=== PATIENT | male | born 1950 | race African-American/Black ===

== ENCOUNTER 2016-08-28 22:16 | Emergency (ER) | payer MEDICARE, OTHER ==
--- NOTE | ~2016-08-28 | EKG ---
PATIENT: LOTTIE CARDENAS UNIT #: [id number] Ventricular Rate: 110 BPM Atrial Rate: 110 BPM P-R Interval: 144 ms QRS Duration: 96 ms Q-T Interval: 338 ms QTC Calculation(Bezet): 457 ms P [place]: 60 degrees Calculated R [place]: -35 degrees Calculated T [place]: 126 degrees Diagnosis Line: Sinus tachycardia Diagnosis Line: Possible Left atrial enlargement Diagnosis Line: Left axis deviation Diagnosis Line: ST and T wave abnormality, consider lateral ischemia Diagnosis Line: Abnormal ECG Diagnosis Line: When compared with ECG of 28-JUN-2016 13:13, Diagnosis Line: Criteria for Inferior infarct are no longer Diagnosis Line: Present Diagnosis Line: Confirmed by KRISTINA GRAY MD ([id number]) on Diagnosis Line: 08/29/2016 8:18:30 AM INTERPRETING MD: MARINA GRIFFITHS
[2016-08-28 20:52] LABS: BASOPHIL% 0.3 % (0-2.5); EOSINOPHIL# 0.3 X10e3 (0-0.7); EOSINOPHIL% 6.2 % (0.0-7.0); HEMATOCRIT 34.3 % (38.0-50.0); HEMOGLOBIN 10.6 gm/dL (13.0-16.0); LYMPHOCYTE# 0.7 X10e3 (1.0-3.5); MEAN CELL VOLUME 96.6 FL (83-96); MEAN CORPUSCULAR HEMOGLOBIN 29.8 PG (28-34); MEAN CORPUSCULAR HGB CONC 30.9 g/dL (30-36); MONOCYTE# 0.2 X10e3 (0-1.0); MONOCYTE% 3.5 % (3.0-12.0); NEUTROPHIL# 3.3 X10e3 (1.5-7.1); PLATELET COUNT 128 X10e3 (140-420); RED BLOOD COUNT 3.55 X10e (3.90-5.60); RED CELL DISTRIBUTION WIDTH 17.7 % (11.0-15.5); WHITE BLOOD COUNT 4.4 X10e3 (4.0-10.5)
[2016-08-28 20:54] LABS: DIFF IND NO
[2016-08-28 20:57] LABS: POC - CKMB 2.3 ng/mL (0.0-7.9); POC - TROPONIN <0.05 ng/mL (<=0.05)
[2016-08-28 21:08] LABS: ALBUMIN SERUM 3.3 g/dL (3.5-5.0); ALKALINE PHOSPHATASE 140 U/L (32-92); ALT (SGPT) 21 U/L (10-40); AST (SGOT) 17 U/L (10-42); BILIRUBIN, DIRECT 0.1 mg/dL (0.0-0.2); BILIRUBIN,INDIRECT 0.7 mg/dL (0.0-0.9); BILIRUBIN,TOTAL 0.8 mg/dL (0.2-2.0); BLOOD UREA NITROGEN 21 mg/dL (9-23); CARBON DIOXIDE 44 mmol/L (22-31); CHLORIDE 86 mmol/L (100-111); CREATININE SERUM 1.4 mg/dL (0.6-1.4); GLOM FILT RATE Estimated ABOVE60 mL/min (>60); GLUCOSE FASTING 218 mg/dL (70-110); POTASSIUM 4.2 mmol/L (3.5-5.1); PROTEIN TOTAL SERUM 7.7 g/dL (6.0-8.3); SODIUM 137 mmol/L (135-145)
[~2016-08-28 22:16] MED LIST: ALBUTEROL17 G2 IH; ALBUTEROL17 GM INH; ALBUTEROL20 ml INH; ALDACTONE; ATARAX PO; BUMEX1 MG PO; CLOPIDOGREL75 MG PO; COMBIVENT U/D3 ML INH; COREG12.5 MG PO; DESITIN60 GM TOP; DOXYCYCLINE HY100 M1 PO; DOXYCYCLINE HY100 M3; DOXYCYCLINE HY100 M3 PO; FLONASE 0.05% N16 G1; FUROSEMIDE40 MG PO; HYDROCODON-ACE1 EAC5 PO; INSULIN SUBQ; K-DUR20 ME1 PO; LANTUS100 U/ML SUBQ; LANTUS100 UNITS/ SUBQ; LASIX PO; LIPITOR20 MG PO; LIPITOR40 MG PO; LYRICA75 MG PO; MEDROL4 MG/DOSE- PO; METFORMIN; METFORMIN HCL500 M1 PO; METHOTREXATE2.5 MG; METHOTREXATE25 MG/M3 SUBQ; MUCINEX DM TABL1 BOX; NORCO 10-325 TA1 TAB PO; PREDNISONE PO; PROTONIX PO; REGLAN5 MG PO; TRIAMCINOLONE A15 G2 TOP; VENTOLIN5 MG/ML INH; VICODIN PO; ZITHROMAX PO; [UNRECOGNIZED DRUG - OTHER]
== END 2016-08-28 23:18 | disposition home or self-care (01) ==
LOC: CED 22:16
DX: N50.89 Other specified disorders of the male genital organs (principal); R60.0 Localized edema; B35.6 Tinea cruris; F17.210 Nicotine dependence, cigarettes, uncomplicated; J44.9 Chronic obstructive pulmonary disease, unspecified
CPT/HCPCS: 36415; 80048; 80076; 82553; 84484; 85025; 93005; 99283

== ENCOUNTER 2017-01-23 14:14 | Inpatient (IN) | payer MEDICARE, OTHER ==
[~2017-01-23] VITALS: Ht 167.6 cm; Wt 65.2 kg
--- NOTE | ~2017-01-23 | DS ---
Unit #: [id number] #: [id number] Patient: LOTTIE CARDENAS [id number] [address] [id number] I MR#: [id number] NAME: LOTTIE CARDENAS ROOM: 322 Age: 66 Sex: M Admission Date: 01/26/2017 : 1950 Discharge Date: 02/01/2017 Attending Physician: Mark Durham M.D. Primary Care Physician: Aldair Cantu M.D. DISCHARGE SUMMARY ADDENDUM Please note the following discharge medications. After review and discussion with pulmonary services and further review of home medications the discharge medications are as follows: 1. DuoNeb aerosol solution q.6 hours scheduled. 2. Symbicort 160/4.5 two puffs b.i.d. 3. Prednisone 20 mg p.o. daily x5 days. 4. Tylenol 650 mg p.o. q.6 p.r.n. 5. Mag ox 400 mg p.o. daily. 6. Flonase one to two squirts each nostril daily. 7. Bumex 1 mg p.o. daily. 8. Lantus 20 units subcu q.a.m. 9. Lantus 40 units subcu q.h.s. 10. Aspirin 81 mg daily. 11. Reglan 5 mg p.o. q.a.c. and q.h.s. 12. Zyprexa 5 mg p.o. q.h.s. 13. Folic acid 1 mg p.o. daily. DISCHARGE CONDITION Stable. DISCHARGE DISPOSITION Home as detailed above. Dictated by... Nohemi Goode/jan TD: 02/02/2017 11:35 JOB #: [id number] Unit #: [id number] #: [id number] Patient: LOTTIE CARDENAS DISCHARGE SUMMARY Page 1 of 1 X Mark Durham MD X DISCHARGE SUMMARY
--- NOTE | ~2017-01-23 | CR72 ---
[facility] A Service of [facility] & [facility] RADIOLOGY TEXT RESULTS PATIENT: LOTTIE CARDENAS LOCATION: CICCU3 CICCU3-22 : [birth year] UNIT #: [id number] AGE: [address]: Mark Durham MD SEX: M ORDER DR: [id number] [facility] [address] [place], [place] [address] [id number] I MR#: [id number] Acc #: [id number] NAME: LOTTIE CARDENAS : 1950 SEX: M STUDY DATE/TIME: 01/28/2017 13:01 UNIT: C3A PCU ROOM: Replaced by [facility] STUDY DESCRIPTION: CR Chest Single View Portable Attending Physician: Mark Durham M.D. Ordering Physician: Kp Castañeda M.D. Primary Care Physician: Aldair Cantu M.D. MEDICAL IMAGING REPORT This report is preliminary unless electronic signature is present EXAM Single view chest INDICATION Syncope. Shortness of air for 5 days. FINDINGS Single portable AP view of the chest compared to 01/23/2017. Right PICC terminates over the right subclavian vein. Heart is enlarged. There is improving aeration in both lung bases and decreased size of a right pleural effusion. No pneumothorax. IMPRESSION 1. Decreasing size of the right pleural effusion. 2. Right PICC terminates over the right subclavian vein. Dictated by... Hu Garcia M.D. THIS IS AN ELECTRONICALLY VERIFIED REPORT Hu Garcia M.D. at 01/30/2017 10:27 AM EMILIE/kristen TD: 01/29/2017 06:00 JOB #: [id number] MEDICAL IMAGING REPORT Page 1 of 1 COPY
--- NOTE | ~2017-01-23 | XA166 ---
[facility] A Service of [facility] & [facility] RADIOLOGY TEXT RESULTS PATIENT: LOTTIE CARDENAS LOCATION: C3A 339-01 : 46 UNIT #: [id number] AGE: [address]: Mark Durham MD SEX: M ORDER DR: [id number] [facility] [address] [place], [place] [address] [id number] I MR#: [id number] Acc #: [id number] NAME: LOTTIE CARDENAS : 1950 SEX: M STUDY DATE/TIME: 01/24/2017 14:21 UNIT: C3A PCU ROOM: 339 STUDY DESCRIPTION: XA PICC Line Placement WO Port Attending Physician: Mark Durham M.D. Ordering Physician: Mark Durham M.D. Primary Care Physician: Aldair Cantu M.D. MEDICAL IMAGING REPORT This report is preliminary unless electronic signature is present EXAM Right-sided PICC line placement INDICATION Need for IV access in a patient with cardiomegaly and a right pleural effusion diagnosed on radiograph performed January 23, 2017. 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 Informed consent was obtained and prior to initiating the procedure a formal time-out procedure was performed. Using all elements of maximal sterile barrier technique including hand hygiene, caps, sterile gowns, gloves and masks, the right arm was prepped 2% Chlorhexidine for cutaneous antisepsis and covered with a large sterile sheet. The ultrasound probe was covered with a sterile probe cover and sterile gel was applied. Real-time ultrasound guidance was used to localize a right upper extremity vein which was found to be patent and compressible. A hard copy ultrasound image was obtained. After localization anesthesia with 1% Xylocaine the vein was punctured using real-time ultrasound guidance and an 0.018 guidewire was advanced into the right subclavian vein but could not be advanced any further. At this point a peel-away sheath was advanced over the wire. Catheter was measured and trimmed and the catheter was positioned within a right subclavian vein. Following placement it flushed and aspirated easily. Total fluoroscopy time was 0.1 minutes. AK was 1 mGy. Position of the catheter was confirmed with radiographic image. IMPRESSION Successful placement of a right-sided midline PICC which terminates within the right subclavian vein. Ultrasound and fluoroscopy were used during the placement of the catheter and permanent images were saved. [facility] A Service of [facility] RADIOLOGY TEXT RESULTS PATIENT: LOTTIE CARDENAS LOCATION: C3A 339-01 : 46 UNIT #: [id number] AGE: [address]: Mark Durham MD SEX: M ORDER DR: Dictated by... Nivia Escobar M.D. THIS IS AN ELECTRONICALLY VERIFIED REPORT Nivia Escobar M.D. at 01/25/2017 5:17 PM BALTAZAR/latonia TD: 01/25/2017 15:48 JOB #: [id number] MEDICAL IMAGING REPORT Page 1 of 1 COPY
--- NOTE | ~2017-01-23 | DS ---
Unit #: [id number] #: [id number] Patient: LOTTIE CARDENAS [id number] [facility]. [place], [place] [address] [id number] I MR#: [id number] NAME: LOTTIE CARDENAS ROOM: 322 Age: 66 Sex: M Admission Date: 01/26/2017 : 1950 Discharge Date: 02/01/2017 Attending Physician: Mark Durham M.D. Primary Care Physician: Aldair Cantu M.D. DISCHARGE SUMMARY REASON FOR ADMISSION Syncopal episode at home. HISTORY OF PRESENT ILLNESS/HOSPITAL COURSE The patient is a 66-year-old -[place] male with a prior history of end stage COPD on home O2 with very poor compliance, prior history of nonischemic cardiomyopathy and history of AICD and chronic systolic heart failure who was brought to the emergency room secondary to a syncopal episode. He, himself, is a fairly poor historian. He stated that apparently he was at home, passed out for approximately 30 seconds. He did not have any postictal state. He was subsequently admitted for the same. In regards to his prior history of systolic heart failure as well as nonischemic cardiomyopathy, consultation was placed to cardiology services. Dr. Campos and associates saw and evaluated patient. He was placed initially on dobutamine as well as dopamine support for acute on chronic systolic heart failure. These medications were gradually weaned. He was maintained on appropriate IV diuresis. From a cardiac standpoint, he was eventually weaned off of medications and, from their standpoint, patient was felt to be stable for discharge. 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 It was recommended that he follow up with them at time of discharge. He did undergo a 2D echocardiogram this hospital admission on January 25, 2017, showing ejection fraction of approximately 15%, possibly even as low as 10%, after discussion and review with Dr. Campos as well as grade 2 diastolic dysfunction, severe tricuspid regurgitation as well as mild mitral regurgitation. Secondary to patient's poor respiratory status and end stage COPD, consultation was placed to pulmonary services who saw and evaluated Dr. Medrano and recommended patient be more compliant with his O2. He was maintained on routine COPD medications and eventually transitioned to p.o. medications at time of discharge. Overall, his prognosis is poor. I have reviewed his overall level of care with this patient, the patient's fiance as well as the patient's niece. They are well aware of the patient's longstanding history of noncompliance, both with fluid restriction as well as with wearing his home O2. I also questioned if he still was taking his medications at home Unit #: [id number] #: [id number] Patient: LOTTIE CARDENAS as well. His chance of readmission is significantly elevated. He states in the future that he will go to [facility]. I did state to him that any particular hospital overall. His [facility] prognosis primarily depends on his ability to comply with medications and/or management and likely his life expectancy may be less than six months if he continues on this current regimen of noncompliance. It should also be noted physical and occupational therapy services saw and evaluated patient. They did recommend patient consider rehab at time of discharge. However, he adamantly refused and he stated that he wished to go home. This, too, was according to his guajardo. FINAL DISCHARGE DIAGNOSES 1. Acute on chronic systolic heart failure, estimated ejection fraction between 10 to 15%. 2. Grade 2 diastolic dysfunction. 3. Prior history of automatic implantable cardioverter defibrillator placement. 4. Syncopal episode at home. 5. Paroxysmal atrial fibrillation history. 6. Prior history of nonsustained ventricular tachycardia. 7. Prior history of coronary artery disease with stent placement to LAD. 8. Peripheral vascular disease. 9. Hypertension. 10. Hyperlipidemia. 11. Type 2 diabetes. 12. Prior history of transient ischemic attacks. 13. End stage chronic obstructive pulmonary disease, on home O2. 14. DO NOT RESUSCITATE status. 15. Longstanding history of noncompliance. 16. Anemia, likely of chronic disease, baseline between 9 to 10. FINAL DISCHARGE MEDICATIONS 1. Prednisone 20 mg p.o. daily x5 days. 2. Eliquis 5 mg p.o. b.i.d. 3. Folic acid 1 mg p.o. daily. 4. DuoNeb aerosol solution q.6 hours scheduled. 5. Flonase one to two squirts each nostril q. a.m. 6. Zyprexa 5 mg p.o. q. h.s. 7. Reglan 5 mg p.o. q. a.c. 8. Aspirin 81 mg p.o. daily. 9. Mag ox 400 mg p.o. daily. 10. Neurontin 100 mg p.o. q. h.s. 11. Bumex 1 mg p.o. daily. 12. Levemir 15 units subcu q. a.m. 13. Metformin 500 mg p.o. t.i.d. DISCHARGE CONDITION Stable. DISCHARGE DISPOSITION Home. Home health to follow at time of discharge. HALFWAY PROGNOSIS Poor secondary to noncompliance. Unit #: [id number] #: [id number] Patient: LOTTIE CARDENAS Dictated by... Nohemi Goode/michael TD: 02/02/2017 11:26 JOB #: [id number] DISCHARGE SUMMARY Page 1 of 1 X Mark Durham MD X DISCHARGE SUMMARY
--- NOTE | ~2017-01-23 | A ---
[facility] Nutrition Therapy DATE: 01/24/17 Patient: LOTTIE CARDENAS Physician: SHAYY Address: [address] [place] [address] Room/Bed: [address] [place] [address], Zip: [place] [address] Admit Date: 01/23/17 Date of : 46 Height: 5 6 Weight: 158 72 NUTRITIONAL ASSESSMENT: REASON: 2 NUTRITION RISK PT RE: PRESSURE ULCER/NON-HEALING WOUND + POOR PO INTAKE PT IS 66 Y.O. MALE ADMITTED FOR SYNCOPE, CHF PMH: COPD, HTN, HLD, DM, AFIB, CHF, STROKE, PAD, NONISCHEMIC CARDIOMYOPATHY Anthropometrics: 5'6", WT: 158# (71.8 KG), BMI: 25.5 Labs: BUN: 32, CREAT: 1.5, ALB: 2.6, A1c: 7.5 (06/30/16), GFR: 54.7 Meds: REGLAN, NACL, NOVOLOG, LEVEMIR, FOLIC ACID, LEVAQUIN IV I/O & Bowel function: 6335/100 Skin Integrity: BLE SWELLING Assessment: CHART REVIEWED AND EVENTS NOTED. PT SEEN FOR 2 NUTRITION RISK SCREENING PTS RE: PRESSURE ULCER + POOR PO INTAKE. PT SLEEPY & LETHARGIC AT TIME OF VISIT REPORTING "GOOD" PO INTAKE AND APPETITE. PT HAD BREAKFAST TRAY AT BEDSIDE-NOTED PT ATE ~50%. PER [employer], PT'S WEIGHTS HAVE BEEN STABLE (170# IN 2013). THIS RD ENCOURAGED ADEQUATE KCAL AND PROTEIN INTAKE, PT AGREED TO ENSURE PUDDING W/DINNER MEAL. PT NOT APPROPRIATE FOR DIET EDUCATION NEEDS 2' PT'S CURRENT SLEEPY/LETHARGIC CONDITION. RD TO FOLLOW. SEE RECOMMENDATIONS BELOW. Dx: ALTERED NUTRIENT UTILIZATION R/T PMH, CURRENT DIAGNOSIS AEB NEED FOR THERAPEUTIC DIET ORDER. Intervention: 1. HEALTHY HEART DIET 2. ENSURE PUDDING W/DINNER MEAL Monitoring, Evaluation and Goals: 1. ORAL INTAKE; CONSUME/TOLERATE >50% OF MEALS AND SUPPLEMENT 2. WEIGHTS; PROMOTE WEIGHT MAINTENANCE 3. LABS; WNL MONITOR: -PO INTAKE/APPETITE -SUPPLEMENT INTAKE -LABS Recommendations: [facility] Nutrition Therapy DATE: 01/24/17 Patient: LOTTIE CARDENAS Physician: SHAYY Address: [address] [place] [address] Room/Bed: [address] [place] [address], Zip: [place] [address] Admit Date: 01/23/17 Date of : [birth year] Height: 5 6 Weight: 158 72 1. PLEASE ORDER [place] ENSURE PUDDING W/DINNER MEAL DAILY 2. CONSIDER ADDING CC TO CURRENT DIET ORDER, IF PO INTAKE ADEQUATE 3. CONSIDER ADDING MVI W/MINERAL DAILY TO PT'S CURRENT MEDICATION REGIMEN RD WILL F/U PER PROTOCOL PT IS MILDLY COMPROMISED Respectfully, TITO CESAR MS, RD, LD [facility] Nutrition[facility] cc: client file
--- NOTE | ~2017-01-23 | CR72 ---
[facility] A Service of [facility] & [facility] RADIOLOGY TEXT RESULTS PATIENT: LOTTIE CARDENAS LOCATION: [facility] 339-01 : 48 UNIT #: [id number] AGE: [address]: Mark Durham MD SEX: M ORDER DR: [id number] [facility] [address] [place], [place] [address] [id number] I MR#: [id number] Acc #: [id number] NAME: LOTTIE CARDENAS : 1950 SEX: M STUDY DATE/TIME: 01/23/2017 14:36 UNIT: A U ROOM: [facility] STUDY DESCRIPTION: CR Chest Single View Portable Attending Physician: Bev Gilbert M.D. Ordering Physician: Johnie Steve M.D. Primary Care Physician: Aldair Cantu M.D. MEDICAL IMAGING REPORT This report is preliminary unless electronic signature is present EXAM Portable chest, 01/23/2017 INDICATION Syncopal episode and shortness of air today. FINDINGS AP portable chest is compared with 06/30/2016. Heart remains enlarged. There is new infiltrate or atelectasis at the right base with a small right effusion. Left lung clear. No pneumothorax. IMPRESSION Stable cardiomegaly with new small right pleural effusion and right base atelectasis or infiltrate. Dictated by... Johnie Griffith Jr., M.D. THIS IS AN ELECTRONICALLY VERIFIED REPORT Johnie Griffith Jr., M.D. at 01/24/2017 8:49 AM MEREDITH/luisa TD: 01/23/2017 21:20 JOB #: [id number] MEDICAL IMAGING REPORT Page 1 of 1 COPY
--- NOTE | ~2017-01-23 | EKG ---
PATIENT: LOTTIE CARDENAS UNIT #: [id number] Ventricular Rate: 125 BPM Atrial Rate: 125 BPM P-R Interval: 124 ms QRS Duration: 100 ms Q-T Interval: 324 ms QTC Calculation(Bezet): 467 ms P [place]: 64 degrees Calculated R [place]: -59 degrees Calculated T [place]: 102 degrees Diagnosis Line: Sinus tachycardia Diagnosis Line: Left anterior fascicular block Diagnosis Line: Inferior infarct (cited on or before 17-DEC-2013) Diagnosis Line: T wave abnormality, consider lateral ischemia Diagnosis Line: Abnormal ECG Diagnosis Line: When compared with ECG of 23-JAN-2017 14:22, Diagnosis Line: Premature atrial complexes are no longer Present Diagnosis Line: Vent. rate has increased BY 43 BPM Diagnosis Line: Diagnosis Line: Confirmed by ARLEEN SANCHES MD ([id number]) on Diagnosis Line: 01/29/2017 9:50:34 PM INTERPRETING MD: ENE
--- NOTE | ~2017-01-23 | EKG ---
PATIENT: LOTTIE CARDENAS UNIT #: [id number] Ventricular Rate: 82 BPM Atrial Rate: 82 BPM P-R Interval: 170 ms QRS Duration: 102 ms Q-T Interval: 422 ms QTC Calculation(Bezet): 493 ms P [place]: 54 degrees Calculated R [place]: -54 degrees Calculated T [place]: 146 degrees Diagnosis Line: Sinus rhythm with Premature atrial complexes Diagnosis Line: Left axis deviation Diagnosis Line: Inferior infarct , age undetermined Diagnosis Line: T wave abnormality, consider lateral ischemia Diagnosis Line: Abnormal ECG Diagnosis Line: When compared with ECG of 28-AUG-2016 19:07, Diagnosis Line: Premature atrial complexes are now Present Diagnosis Line: Inferior infarct is now Present Diagnosis Line: Inverted T waves have replaced nonspecific T wave Diagnosis Line: abnormality in Anterior leads Diagnosis Line: Confirmed by DARRIUS WEBER MD ([id number]) on 01/24/2017 Diagnosis Line: 12:08:33 AM INTERPRETING MD: TIA GRIFFITHS
--- NOTE | ~2017-01-23 | CO ---
Unit #: [id number] #: [id number] Patient: LOTTIE CARDENAS [id number] [facility]. [place], [place] [address] [id number] MR#: [id number] NAME: LOTTIE CARDENAS ROOM: CICCU3 Age: 66 Sex: M Admission Date: 01/26/2017 : 1950 Attending Physician: Mark Durham M.D. Primary Care Physician: Aldair Cantu M.D. Consultation Date: 01/29/2017 CONSULTATION REPORT REASON FOR CONSULTATION ICU. HISTORY OF PRESENT ILLNESS The patient is a 66-year-old gentleman who looks much older than stated age, has multiple medical problems including severe cardiomyopathy with an EF of approximately 15%. He also has COPD on home oxygen but only wears his oxygen as needed. When I asked him why he came into the hospital, he says "I don't know." Apparently according to the EHR, the family called EMS because he was weak. He was found to be hypotensive, had lower extremity edema. Initial chest x-ray showed a right pleural effusion. He apparently now is being transferred to the ICU because of low blood pressure and is being placed on dobutamine. The patient denies shortness of breath, chest pain, sputum production, hemoptysis, palpitations, but again he appears to be very bothered by the fact that I was asking him any questions at all. PAST MEDICAL HISTORY Nonischemic cardiomyopathy, COPD, chronic respiratory failure with p.r.n. use oxygen at home, hypertension, diabetes, hyperlipidemia, paroxysmal atrial fibrillation, peripheral artery disease. MEDICATIONS AT HOME He has oxygen that he wears as needed. He has a nebulizer. He cannot tell me any other inhaled medications. According to the HER he was on Coreg, Eliquis, Lasix, Glucophage, folic acid, gabapentin, DuoNeb, Flonase, Lortab and Lantus insulin. ALLERGIES Oxycodone and Tylenol, unknown reaction. SOCIAL HISTORY He is single. He really does not want to tell me where he lives or who he lives with at home. He occasionally drinks alcohol and is a referred tobacco smoker, told me he quit three years ago. FAMILY HISTORY No familial lung disease. REVIEW OF SYSTEMS He basically does not participate with a review of systems. He states "you should know." PHYSICAL EXAMINATION Unit #: [id number] #: [id number] Patient: LOTTIE CARDENAS GENERAL: Reveals a gentleman who is in no acute distress on nasal cannula oxygen, appears somewhat dyspneic. VITAL SIGNS: He is afebrile. Pulse 126, respiratory rate is 27, blood pressure 89/56, 5'6", 143 pounds. HEENT: Pupils equal, round and reactive to light. Sclerae anicteric. Head atraumatic. NECK: Supple. No supraclavicular or cervical adenopathy appreciated. Mucous membranes borderline dry. Jugular venous pressures appear increased. CHEST: Decreased breath sounds. No active wheeze, stridor or consolidation. CARDIAC: Reveals distant heart tones. Regular rate and rhythm. No definite pathologic murmur, rub or gallop. ABDOMEN: Soft, nontender. No hepatomegaly or rebound. EXTREMITIES: Reveals brawny induration changes. No acute rash. No diaphoresis. No clubbing or cyanosis. There is some edema. NEUROLOGIC: He did not participate with a full neurologic exam. DIAGNOSTIC STUDIES IMAGING STUDIES: Chest x-ray is fairly unremarkable. No acute infiltrates. LABORATORY STUDIES: Arterial blood gas - pH 7.49, pCO2 62, pO2 of 68 on 2 1/2 L. His BUN is 44, creatinine 1.7 which is a little higher than his admission labs. BNP 1,375. White blood cell count 11, hemoglobin 10.3, platelet count 319. Urinalysis - pyuria and hematuria. Blood cultures on admission - no growth so far. Urine no growth. IMPRESSION 1. Respiratory failure, hypercapnic, hypoxemic. 2. Severe left ventricular dysfunction with evidence of low cardiac outpatient state. 3. Chronic obstructive pulmonary disease without active bronchospasm. 4. Chronic respiratory failure at home with only p.r.n. use. 5. Do not Resuscitate status. 6. Multiple medical problems listed above. PLAN Maximize pulmonary status. He currently is on Dulera and nebulized bronchodilators. Apparently Levaquin has been implemented possibly for urinary tract infection. I will check a cortisol level and if low will consider IV steroids, on the other hand I do not think he needs otherwise. Otherwise I don't think he needs IV steroids for bronchospasm. Will repeat urine for UA and C and S. Thank you very much for allowing me to participate in the care of Mr. Cardenas. Dictated by... Nohemi Sarabia/jan TD: 01/30/2017 09:11 JOB #: [id number] Unit #: [id number] #: [id number] Patient: LOTTIE CARDENAS CONSULTATION REPORT Page 1 of 1 X José Medrano MD CONSULTATION REPORT
--- NOTE | ~2017-01-23 | FU ---
[facility] Nutrition Therapy DATE: 01/31/17 Patient: LOTTIE CARDENAS Physician: SHAYY Address: [address] [place] [address] Room/Bed: [address], Zip: [place] [address] Admit Date: 01/26/17 Date of : 48 Height: 5 6 Weight: 152 69 NUTRITION MONITORING/FOLLOW-UP: Reason: Nutrition follow-up Admitting dx: 66 y/o male admitted with CHF and syncopal episode Anthropometrics: Ht: 66", admission wt: 158 lbs, current wt: 152 lbs, BMI: 25.5 (overweight; based on admission weight) Labs: Na 132, glucose 384, POC 259-376 (01/30), BUN 59, creat 1.5, GFR 54.7 Meds: IV levaquin, bumex, reglan, mag-ox, dopamine, dobutamine, high SSI (changed from medium SSI 01/30), levemir, solu-medrol (changed from q 6 hrs to q 12 hrs 01/30) GI: BM 01/29 Skin: Toe ulcers noted, no edema Assessment: Chart reviewed, events noted. Patient transferred to ICU from on 01/29 due to hypotension. He remains on 2 pressors which are trying to be weaned down. He has been refusing the bipap so he is on 2L nasal cannula. CXR showed ascites and pleural effusion. He has been tolerating a consistent carb/no added salt diet with 1800 ml fluid restriction. Nursing noted he likes to drink fluids, so controlling his CHF at home may be an issue. KETTLE SKIMMER informed me he has refuses a mechanical soft restriction on his diet and that he eats very well. Nursing states he is complaining of his dietary restrictions and wants more food. His blood glucose has not been well controlled and his insulin regimen was adjust yesterday as well as his solu-medrol schedule. See nutrition goals, nutrition dx and recs as stated below. Will continue to follow. Dx: Impaired nutrient utilization r/t PMH, current diagnosis AEB need for therapeutic diet order and fluid restriction, blood glucose 259-376 mg/dL. - ACTIVE Intervention: See recs below Monitoring, Evaluation and Goals: Previous goals: 1. PO intake > 50% of meals - MET 2. Maintain weight status - MET (weight fluctuates with fluid status) 3. Labs will improve - IN PROGRESS Updated goals: [facility] Nutrition Therapy DATE: 01/31/17 Patient: LOTTIE CARDENAS Physician: SHAYY Address: [address] [place] [address] Room/Bed: CICCU3-[address] [facility], Zip: [place] [address] Admit Date: 01/26/17 Date of : 48 Height: 5 6 Weight: 152 69 1. PO intake WNL 50-100% of meals. 2. Improvement in labs (glucose < 200, Na WNL). Monitor: per protocol, criteria to determine if above goals met Recommendations: 1. Suggest continuing with consistent carb (60g carbs/meal) / no added salt (no more than 4,000 mg/day) + fluid restriction per MD noting hyponatremia. 2. Daily weights. 3. Continue to optimize insulin regimen noting hyperglycemia. Discontinue solu-medrol once able. 4. Patient would benefit from low sodium/consistent carb diet education once appropriate. Please consult prior to discharge if diet education is desired and patient is agreeable. Status: Mild nutrition risk Respectfully, Geovanna Austin, KASSIE, LD [employer] [facility] [employer] Services [facility] cc: client file
--- NOTE | ~2017-01-23 | CT57 ---
[facility] A Service of [facility] RADIOLOGY TEXT RESULTS PATIENT: LOTTIE CARDENAS LOCATION: C3A 339- : 48 UNIT #: [id number] AGE: [address]: Mark Durham MD SEX: M ORDER DR: [id number] [facility] [address] [facility]. [place], [place] [address] [id number] I MR#: [id number] Acc #: [id number] NAME: LOTTIE CARDENAS : 1950 SEX: M STUDY DATE/TIME: 01/24/2017 15:22 UNIT: C3A PCU ROOM: [facility] STUDY DESCRIPTION: CT Chest Wo Cont Attending Physician: Mark Durham M.D. Ordering Physician: Mark Durham M.D. Primary Care Physician: Aldair Cantu M.D. MEDICAL IMAGING REPORT This report is preliminary unless electronic signature is present EXAM CT scan of the chest without contrast INDICATIONS Shortness of air since yesterday. Syncopal episode yesterday. Right pleural effusion on chest x-ray. COMPARISON 10/13/2009 TECHNIQUE Axial 5-mm images were obtained through the chest without IV contrast. This CT exam was performed with one or more of the following radiation dose reduction techniques: Automatic exposure control, adjustment of mA and/or kV according to patient size, and iterative reconstruction. FINDINGS There are densely calcified right paratracheal lymph nodes. There is a pacemaker present. The aorta is normal in size. There are small uxqyb-kcfdyaz-ajom-left effusions and minimal right base atelectasis. Lungs are otherwise clear. Visualized portions of the upper abdomen show a small amount of ascites. Gallbladder is slightly contracted and may contain some stones. IMPRESSION 1. There is a small right effusion and a tiny left effusion. 2. Small amount of upper abdominal ascites. 3. Possible gallstones or sludge. 4. No infiltrates are identified. [facility] A Service [facility] RADIOLOGY TEXT RESULTS PATIENT: LOTTIE CARDENAS LOCATION: C3A 339- : 48 UNIT #: [id number] AGE: [address]: Mark Durham MD SEX: M ORDER DR: Dictated by... Sp Farrell M.D. THIS IS AN ELECTRONICALLY VERIFIED REPORT Sp Farrell M.D. at 01/26/2017 6:09 AM FEL/psc TD: 01/25/2017 03:29 JOB #: [id number] MEDICAL IMAGING REPORT Page 1 of 1 COPY
--- NOTE | ~2017-01-23 | CO ---
Unit #: [id number] #: [id number] Patient: LOTTIE CARDENAS [id number] [facility]. [place], [place] [address] [id number] MR#: [id number] NAME: LOTTIE CARDENAS ROOM: 339 Age: 66 Sex: M Admission Date: 01/23/2017 : 1950 Attending Physician: Mark Durham M.D. Primary Care Physician: Aldair Cantu M.D. CONSULTATION REPORT REASON FOR CONSULTATION Syncope and congestive heart failure. HISTORY OF PRESENT ILLNESS This is a pleasant 66-year-old male with a past medical history of systolic congestive heart failure, status post AICD [employer] placement; COPD, on home O2; nonischemic cardiomyopathy; paroxysmal atrial fibrillation, on anticoagulation with Eliquis; PAD; diabetes mellitus; hypertension; hyperlipidemia; coronary artery disease with a history of stents in the past. He typically follows with Dr. Jaffe at [facility], she is his primary substitute teacher. The patient at present is drowsy, but does awaken and answer some questions, but drifts quickly back to sleep, but he is a poor historian. However, there is no family present at bedside. According to the chart as well as a review with the nursing staff, the patient came in secondary to a syncopal episode. He tells me he was at home in his typical state of health, watching television when he began dropping things and then states he loss consciousness for a few seconds, then awoke and called EMS. On arrival to the emergency room, the blood pressure was noted to be low at in the 80s/60s. He denied any complaints of chest pain, palpitations, or discharge of his defibrillator. Preceding this episode, he denied any seizure activity and denied any urinary incontinence. In the emergency room, chest x-ray showed a new right pleural effusion as well as an elevated BNP of 1722. In the ER, he did receive 1 L of fluid bolus and started on empiric antibiotic therapy. The patient does report increasing difficulty with his breathing as well as scrotal swelling and abdominal distention. However, he denies any PND at this time. His initial EKG in the ER showed sinus rhythm with PACs, left axis deviation, inferior infarct, age undetermined, and some nonspecific T-wave abnormality in the lateral leads, rate was 82 beats per minute, no acute ischemic changes were noted. Point of care troponin was negative. We were asked to see the patient for evaluation of the above. PAST MEDICAL HISTORY 1. Chronic systolic congestive heart failure, ejection fraction 15% to 20%. 2. Status post AICD placement, [employer] device. 3. Nonischemic cardiomyopathy. 4. Hypertension. 5. Diabetes mellitus. 6. Hyperlipidemia. 7. COPD, on home oxygen therapy. 8. Paroxysmal atrial fibrillation, on chronic anticoagulation with Unit #: [id number] #: [id number] Patient: LOTTIE CARDENAS. 9. Peripheral arterial disease. 10. Coronary artery disease with a history of stents in the past. 11. History of recurrent TIAs. PAST SURGICAL HISTORY 1. [employer] defibrillator placement. 2. Cardiac catheterization. HOME MEDICATIONS 1. Gabapentin 300 mg p.o. b.i.d. 2. Ipratropium-Albuterol Mini-Neb q.6 hours as needed. 3. Flonase 0.5 nasal spray every morning. 4. Lortab 10/325 one tablet p.o. q.6 hours p.r.n. 5. Carvedilol 6.25 mg b.i.d. 6. Eliquis 5 mg p.o. b.i.d. 7. Lasix 80 mg p.o. b.i.d. 8. Glucophage 1000 mg p.o. b.i.d. 9. Folic acid 1 mg p.o. daily. 10. Lantus 20 units subcu every morning. 11. Aspirin 81 mg p.o. daily. 12. Athlete foot spray one spray topical daily. 13. Clotrimazole 12 g topical twice daily. 14. [place] spray as needed. 15. Desitin diaper rash ointment topical daily to affected area. 16. Desonide cream twice daily to affected area. 17. Flovent 2 spray inhalation every morning. 18. Hydrocortisone cream topical twice daily. 19. Hydroxyzine 1 to 3 tablets at bedtime. 20. Lantus 40 units subcu every evening. 21. Reglan 5 mg p.o. t.i.d. before meals. 22. NovoLog insulin 0 to 7 units subcu four times daily. 23. Olanzapine 7.5 mg p.o. every evening. 24. Symbicort 160/4.5 two puffs inhalation daily. 25. Furosemide 5 mg p.o. daily. ALLERGIES Oxycodone and acetaminophen. SOCIAL HISTORY This is a single male. He states he lives at home alone. He has a prior history of smoking in the remote past. Occasional alcohol use. Denies any illicit drugs. FAMILY HISTORY Positive for coronary artery disease in his father. REVIEW OF SYSTEMS Difficult to obtain secondary to the patient is drowsy at this time. It is positive for what is stated above in the HPI. PHYSICAL EXAMINATION GENERAL APPEARANCE: This is a 66-year-old male, resting in bed, and in no acute distress. VITAL SIGNS: Temperature 97.5, respiratory rate 18 to 22, pulse 87, blood pressure 97/72 to 110/74. HEENT: Head is atraumatic and normocephalic. Pupils are equal and round. Mucous membranes are dry. Unit #: [id number] #: [id number] Patient: RONALD,BRIGHT NECK: Trachea is midline. Positive JVD. Carotid upstrokes are normal. No thyromegaly or lymphadenopathy. LUNGS: Clear anterior, diminished in the right. Fine crackles noted in the left lower base. HEART: S1 and S2. No murmur, gallop, or rub. ABDOMEN: Tense and distended. Positive hepatosplenomegaly. Unable to palpate for any masses at this time. EXTREMITIES: Legs are tight bilaterally, especially in the thigh area. Lower legs are covered with Jin bandages. GENITOURINARY: Significant scrotal swelling. SKIN: He has an AICD in place in left chest wall. NEUROLOGIC: He is sleepy, but is arousable and answers questions, but is a poor historian. However, he does move all extremities equally and he is following commands with ease. DIAGNOSTIC STUDIES IMAGING STUDIES: Chest x-ray shows stable cardiomegaly with new small right pleural effusion and right base atelectasis or infiltrate. LABORATORY DATA: Glucose 82, BUN 32, creatinine 1.5, sodium 139, potassium 3.9, chloride 95, CO2 of 36, albumin 2.6. BNP was 1722. Lactic acid was 1. Point of care troponin has been negative x1. Hemoglobin 9.6, hematocrit 32.1, WBC 6.5, and platelet count 221. Blood cultures are pending. CARDIOVASCULAR STUDIES: EKG shows sinus rhythm with PACs, rate of 82 beats per minute, left axis deviation, cannot rule out previous inferior infarct, T-wave abnormalities noted in the lateral leads, nonspecific, QTc interval of 493 milliseconds. IMPRESSION 1. Acute on chronic systolic congestive heart failure, last known ejection fraction was 15% to 20%. 2. Status post [employer] automatic implantable cardioverter-defibrillator. 3. Syncopal episode. 4. Paroxysmal atrial fibrillation, on chronic anticoagulation with Eliquis. 5. Nonischemic cardiomyopathy. 6. History of coronary artery disease with a history of stents in the past. 7. Peripheral arterial disease. 8. Hypertension. 9. Hyperlipidemia. 10. Diabetes mellitus. 11. Nonsustained ventricular tachycardia. PLAN The patient has been admitted, we were asked to see for syncopal episode and congestive heart failure. He is a very poor historian and there is no family present at bedside. The patient does follow with a substitute teacher at [facility], Dr. Jaffe. We will request those records as far as any stress test, recent echo, discharge summary, and a cardiac cath if he has had in the past. We will continue to trend cardiac enzymes and troponin with parameters to call if his troponins greater than 0.5. We will get [employer] to come in and interrogate the patient's defibrillator to see if there are any episodes of nonsustained ventricular tachycardia. The patient however denies any discharges of his Unit #: [id number] #: [id number] Patient: LOTTIE CARDENAS defibrillator. At this time, we will discontinue his carvedilol, and start the patient on Dobutrex at 5 mcg/kg per kg per minute. He will also be started on Bumex drip at 2 mg/hour for 4 hours, then 1.5 mg/hour for six, and then 1 mg/hour, and his oral diuretics will be discontinued. We will have to monitor his creatinine closely. He will have CBC, magnesium, BMP, and BNP in the morning. We will also check repeat 2D echocardiogram today. The patient will also be placed on strict I's and O's as well as fluid restriction and sodium restriction. Further recommendations will be pending Dr. Campos's assessment. Dictated by... Grace Wolfe A.P.R.N. for Nohemi Hitchcock/ahn TD: 01/25/2017 12:16 JOB #: [id number] CONSULTATION REPORT Page 1 of 1 X Grace Wolfe APRN X CONSULTATION REPORT
--- NOTE | ~2017-01-23 | HP ---
Unit #: [id number] #: [id number] Patient: LOTTIE CARDENAS [id number] [address] [id number] MR#: [id number] NAME: LOTTIE CARDENAS ROOM: Age: 66 Sex: M Admission Date: 01/23/2017 : 1950 Attending Physician: Johnie Steve M.D. Primary Care Physician: Aldair Cantu M.D. HISTORY AND PHYSICAL CHIEF COMPLAINT Syncope. HISTORY OF PRESENT ILLNESS The patient is a 66-year-old -Greek male with a history of a COPD on home oxygen and the nonischemic cardiomyopathy, status post AICD and the chronic systolic heart failure, brought to the emergency room with a syncopal episode. The patient is a poor historian and the history is obtained by speaking to the ER physician. The patient called the EMS because the patient had been weak. Once the EMS arrived, the patient had a syncopal episode and with a blood pressure down to 85/60 with the heart rate of 83 and that lasted for 30 seconds and patient had no postictal period. The patient also complains of the swelling of the legs associated with the scrotal swelling. The patient denies any chest pain. Positive for shortness of breath and denies any palpitations or firing of the AICD. The patient had a chest x-ray that showed the right pleural effusion and concerning for the atelectasis with the pneumonia on the right. Patient is being admitted for the above reasons. PAST MEDICAL HISTORY History of nonischemic cardiomyopathy, hypertension, diabetes, hyperlipidemia, COPD on home oxygen, paroxysmal atrial fibrillation, peripheral arterial disease, weakness, slurred speech. PAST SURGICAL HISTORY History of a cardiac defibrillator present. HOME MEDICATIONS Patient is on Coreg, Eliquis, Lasix, Glucophage, folic acid, gabapentin, DuoNeb, Flonase, Lortab and Lantus. ALLERGIES Oxycodone and acetaminophen. SOCIAL HISTORY He is single; history of remote smoking, occasional alcohol use, denies any illicit drug abuse. FAMILY HISTORY Positive for cardiac disease in mother and father. REVIEW OF SYMPTOMS Positive for the shortness of breath. Positive for the syncopal episode. Unit #: [id number] #: [id number] Patient: LOTTIE CARDENAS Positive for the leg swelling. Denies any chest pain. Denies any nausea and vomiting and other systems have been reviewed and all other systems are negative except as mentioned above. PHYSICAL EXAMINATION GENERAL APPEARANCE: On examination the patient is lying on a bed more sleepy, not in acute distress. VITAL SIGNS: Temperature 95.9, pulse 82, respiratory rate 18, blood pressure 91/73, sating 98% at 3 L of nasal cannula, blood sugar is 118. HEENT: Head atraumatic and normocephalic. Pupils equal, round and reacting to light and accommodation. Dry mucous membranes. NECK: Supple. LUNGS: decreased air entry at the bases. Positive for rales. HEART: Regular rate and rhythm, status post AICD. ABDOMEN: Soft. EXTREMITIES: Positive for the swelling with the legs covered with the ROBERTA bandage. GENITOURINARY: Scrotal swelling. NEUROLOGIC: The patient is more sleepy and answers the questions yes or no and no gross focal motor deficit. DIAGNOSTIC STUDIES LABORATORY DATA: Glucose 118, troponin less than 0.05, WBC 7.3, hemoglobin 10, hematocrit 32.6, platelet 213, BNP 1722, lactic acid is 1 and sodium 138, potassium 3.4, chloride 93, bicarb 41, glucose 114, BUN 27, creatinine 1.1, AST 14, ALT 12, alkaline phosphatase 171, albumin 2.6. ASSESSMENT 1. Syncope. 2. Chronic systolic congestive heart failure. 3. Pneumonia. PLAN 1. Patient is being admitted to the inpatient with the telemetry. 2. Patient will have cardiology consult for CHF and syncope. 3. Continue with the IV antibiotics with levofloxacin and will continue with the gentle diuresis and hold the narcotics and Accu-Cheks and low dose sliding scale and replace the labs again in the morning. 4. Further recommendations will follow. Dictated by Nohemi So TD: 01/23/2017 17:27 JOB #: [id number] Unit #: [id number] #: [id number] Patient: LOTTIE CARDENAS HISTORY AND PHYSICAL Page 1 of 1 X BRIANNA SILVA MD X HISTORY AND PHYSICAL
[2017-01-23] MEDS ORDERED: PATIENT'S PHARMACY (15:04)
[2017-01-23 15:10] LABS: BASOPHIL# 0.1 X10e3 (0-0.3); BASOPHIL% 0.9 % (0-2.5); EOSINOPHIL# 0.4 X10e3 (0-0.7); EOSINOPHIL% 5.9 % (0.0-7.0); HEMATOCRIT 32.6 % (38.0-50.0); LYMPHOCYTE# 0.7 X10e3 (1.0-3.5); LYMPHOCYTE% 9.2 % (17.0-45.0); MEAN CELL VOLUME 91.7 FL (83-96); MEAN CORPUSCULAR HEMOGLOBIN 28.2 PG (28-34); MEAN CORPUSCULAR HGB CONC 30.7 g/dL (30-36); MEAN PLATELET VOLUME 8.5 FL (6.5-11.5); MONOCYTE# 0.7 X10e3 (0-1.0); NEUTROPHIL# 5.4 X10e3 (1.5-7.1); PLATELET COUNT 213 X10e3 (140-420); RED BLOOD COUNT 3.55 X10e (3.90-5.60); RED CELL DISTRIBUTION WIDTH 20.9 % (11.0-15.5); WHITE BLOOD COUNT 7.3 X10e3 (4.0-10.5)
[2017-01-23 15:10] LABS: POC - CKMB 1.8 ng/mL (0.0-7.9); POC - TROPONIN <0.05 ng/mL (<=0.05)
[2017-01-23 15:11] LABS: DIFF IND NO
[2017-01-23] MEDS ORDERED: GABAPENTIN300 MG PO (15:11)
[2017-01-23] MEDS ORDERED: LORTAB 10-3251 EACH PO (15:11)
[2017-01-23] MEDS ORDERED: FLONASE 0.05% N16 GM (15:11)
[2017-01-23] MEDS ORDERED: IPRATR-ALBUTEROL3 ML NEB (15:11)
[2017-01-23] MEDS ORDERED: LASIX80 MG PO (15:12)
[2017-01-23] MEDS ORDERED: ELIQUIS5 MG PO (15:12)
[2017-01-23] MEDS ORDERED: COREG6.25 M1 PO (15:12)
[2017-01-23] MEDS ORDERED: FOLIC ACID1 MG PO (15:12)
[2017-01-23] MEDS ORDERED: METFORMIN PO (15:12)
[2017-01-23] MEDS ORDERED: LANTUS SOL100 UNIT/1 SUBQ ×2 (15:12→21:38)
[2017-01-23 16:18] LABS: ALBUMIN SERUM 2.6 g/dL (3.5-5.0); BILIRUBIN, DIRECT 0.2 mg/dL (0.0-0.2); BILIRUBIN,INDIRECT 0.6 mg/dL (0.0-0.9); BILIRUBIN,TOTAL 0.8 mg/dL (0.2-2.0); BUN/CREATININE RATIO 24.54; CALCIUM SERUM 8.8 mg/dL (8.4-10.2); CREATININE SERUM 1.1 mg/dL (0.6-1.4); GLOM FILT RATE Estimated 79.5 mL/min (>60); POTASSIUM 3.4 mmol/L (3.5-5.1); PROTEIN TOTAL SERUM 7.4 g/dL (6.0-8.3)
[2017-01-23 17:47] LABS: POC - CKMB 1.9 ng/mL (0.0-7.9); POC - TROPONIN <0.05 ng/mL (<=0.05)
[2017-01-23] MEDS ORDERED: ASPIRIN81 M2 PO (21:08)
[2017-01-23] MEDS ORDERED: ATHLETE'S FOOT130 GM TOP (21:09)
[2017-01-23] MEDS ORDERED: CLOTRIMAZOLE15 GM TOP (21:11)
[2017-01-23] MEDS ORDERED: OCEAN104 ML INH (21:14)
[2017-01-23] MEDS ORDERED: DESITIN DIAPER113 GM TOP (21:15)
[2017-01-23] MEDS ORDERED: TRIDESILON 0.0515 G2 EXT (21:16)
[2017-01-23] MEDS ORDERED: FLOVENT DISKUS50 MCG INH (21:17)
[2017-01-23] MEDS ORDERED: HYDROCREAM28.4 GM TOP (21:35)
[2017-01-23] MEDS ORDERED: HYDROXYZINE HCL10 MG PO (21:36)
[2017-01-23] MEDS ORDERED: METOCLOPRAMIDE H5 MG PO (21:39)
[2017-01-23] MEDS ORDERED: NOVOLOG100 UNITS/ SUBQ (21:49)
[2017-01-23] MEDS ORDERED: OLANZAPINE7.5 MG PO (21:50)
[2017-01-23] MEDS ORDERED: SYMBICORT INH (21:51)
[2017-01-23] MEDS ORDERED: TORSEMIDE PO (21:53)
[2017-01-24 06:44] LABS: HEMATOCRIT 32.1 % (38.0-50.0); HEMOGLOBIN 9.6 gm/dL (13.0-16.0); MEAN CORPUSCULAR HEMOGLOBIN 27.8 PG (28-34); MEAN CORPUSCULAR HGB CONC 29.9 g/dL (30-36); MEAN PLATELET VOLUME 8.4 FL (6.5-11.5); RED BLOOD COUNT 3.45 X10e (3.90-5.60); WHITE BLOOD COUNT 6.5 X10e3 (4.0-10.5)
[2017-01-24 07:11] LABS: BUN/CREATININE RATIO 21.33; CALCIUM SERUM 8.8 mg/dL (8.4-10.2); CREATININE SERUM 1.5 mg/dL (0.6-1.4); GLOM FILT RATE Estimated 54.7 mL/min (>60); POTASSIUM 3.9 mmol/L (3.5-5.1)
[2017-01-24 11:21] LABS: CK TOTAL 27 IU/L (36-174)
[2017-01-24 18:13] LABS: CK TOTAL 24 IU/L (36-174)
[2017-01-25 05:12] LABS: BASOPHIL# 0.1 X10e3 (0-0.3); BASOPHIL% 1.1 % (0-2.5); DIFF IND NO; EOSINOPHIL# 0.3 X10e3 (0-0.7); EOSINOPHIL% 3.5 % (0.0-7.0); HEMATOCRIT 29.6 % (38.0-50.0); HEMOGLOBIN 9.2 gm/dL (13.0-16.0); LYMPHOCYTE# 0.6 X10e3 (1.0-3.5); LYMPHOCYTE% 6.4 % (17.0-45.0); MEAN CELL VOLUME 91.4 FL (83-96); MEAN CORPUSCULAR HEMOGLOBIN 28.4 PG (28-34); MEAN PLATELET VOLUME 8.2 FL (6.5-11.5); MONOCYTE% 9.9 % (3.0-12.0); NEUTROPHIL# 7.8 X10e3 (1.5-7.1); NEUTROPHIL% 79.1 % (40-75); PLATELET COUNT 255 X10e3 (140-420); RED BLOOD COUNT 3.24 X10e (3.90-5.60); WHITE BLOOD COUNT 9.9 X10e3 (4.0-10.5)
[2017-01-25 06:26] LABS: BUN/CREATININE RATIO 23.33; CALCIUM SERUM 8.6 mg/dL (8.4-10.2); CREATININE SERUM 1.5 mg/dL (0.6-1.4); GLOM FILT RATE Estimated 54.7 mL/min (>60); MAGNESIUM 1.7 mg/dL (1.6-3.0); POTASSIUM 3.6 mmol/L (3.5-5.1)
[2017-01-25 18:56] LABS: URINE APPEARANCE CLOUDY; URINE BILIRUBIN NEG (NEG); URINE BLOOD 3+ (NEG); URINE COLOR ORANGE; URINE GLUCOSE NEG (NEG); URINE KETONE NEG (NEG); URINE LEUKOCYTE ESTERASE 3+ (NEG); URINE NITRATE NEG (NEG); URINE PH 5.5 (5-8); URINE PROTEIN 1+ (NEG); URINE SPECIFIC GRAVITY 1.009 (1.003-1.035); URINE UROBILINOGEN 0.2 MG/DL (NEG)
[2017-01-25 18:58] LABS: URBCS1 AUWI INNUM /[HPF] (0-2); URINE BACTERIA AUWI NEG (NEGATIVE); URINE SQUAMOUS EPITHELIAL CELL NONE SEEN /[HPF]; UWBCS1 AUWI 100-200 (0-5)
[2017-01-26 04:00] LABS: HEMATOCRIT 29.7 % (38.0-50.0); HEMOGLOBIN 9.2 gm/dL (13.0-16.0); MEAN CELL VOLUME 89.8 FL (83-96); MEAN CORPUSCULAR HEMOGLOBIN 27.9 PG (28-34); MEAN CORPUSCULAR HGB CONC 31.1 g/dL (30-36); MEAN PLATELET VOLUME 7.5 FL (6.5-11.5); RED BLOOD COUNT 3.3 X10e (3.90-5.60); RED CELL DISTRIBUTION WIDTH 21.3 % (11.0-15.5); WHITE BLOOD COUNT 10.3 X10e3 (4.0-10.5)
[2017-01-26 04:34] LABS: BUN/CREATININE RATIO 23.33; CALCIUM SERUM 8.5 mg/dL (8.4-10.2); CREATININE SERUM 1.2 mg/dL (0.6-1.4); GLOM FILT RATE Estimated 71.6 mL/min (>60); MAGNESIUM 1.8 mg/dL (1.6-3.0); POTASSIUM 3.4 mmol/L (3.5-5.1)
[2017-01-27 04:56] LABS: HEMATOCRIT 29.6 % (38.0-50.0); HEMOGLOBIN 9.2 gm/dL (13.0-16.0); MEAN CELL VOLUME 88.4 FL (83-96); MEAN CORPUSCULAR HEMOGLOBIN 27.5 PG (28-34); MEAN CORPUSCULAR HGB CONC 31.1 g/dL (30-36); MEAN PLATELET VOLUME 7.9 FL (6.5-11.5); RED BLOOD COUNT 3.34 X10e (3.90-5.60); RED CELL DISTRIBUTION WIDTH 21.4 % (11.0-15.5); WHITE BLOOD COUNT 9.8 X10e3 (4.0-10.5)
[2017-01-27 05:44] LABS: BUN/CREATININE RATIO 21.81; CALCIUM SERUM 8.4 mg/dL (8.4-10.2); CREATININE SERUM 1.1 mg/dL (0.6-1.4); GLOM FILT RATE Estimated 79.5 mL/min (>60); MAGNESIUM 1.7 mg/dL (1.6-3.0); POTASSIUM 3.5 mmol/L (3.5-5.1)
[2017-01-28 06:09] LABS: BUN/CREATININE RATIO 24.16; CREATININE SERUM 1.2 mg/dL (0.6-1.4); GLOM FILT RATE Estimated 71.6 mL/min (>60); MAGNESIUM 1.8 mg/dL (1.6-3.0); POTASSIUM 4.3 mmol/L (3.5-5.1)
[2017-01-29 05:31] LABS: BASOPHIL# 0.1 X10e3 (0-0.3); BASOPHIL% 0.5 % (0-2.5); EOSINOPHIL# 0.6 X10e3 (0-0.7); EOSINOPHIL% 5.5 % (0.0-7.0); HEMATOCRIT 33.7 % (38.0-50.0); HEMOGLOBIN 10.3 gm/dL (13.0-16.0); LYMPHOCYTE# 1.5 X10e3 (1.0-3.5); LYMPHOCYTE% 13.6 % (17.0-45.0); MEAN CELL VOLUME 88.8 FL (83-96); MEAN CORPUSCULAR HEMOGLOBIN 27.2 PG (28-34); MEAN CORPUSCULAR HGB CONC 30.6 g/dL (30-36); MEAN PLATELET VOLUME 7.4 FL (6.5-11.5); MONOCYTE# 1.3 X10e3 (0-1.0); MONOCYTE% 11.8 % (3.0-12.0); NEUTROPHIL# 7.6 X10e3 (1.5-7.1); NEUTROPHIL% 68.6 % (40-75); PLATELET COUNT 319 X10e3 (140-420); RED BLOOD COUNT 3.79 X10e (3.90-5.60); RED CELL DISTRIBUTION WIDTH 21.1 % (11.0-15.5)
[2017-01-29 05:32] LABS: DIFF IND NO
[2017-01-29 06:12] LABS: BUN/CREATININE RATIO 25.88; CALCIUM SERUM 9.4 mg/dL (8.4-10.2); CREATININE SERUM 1.7 mg/dL (0.6-1.4); MAGNESIUM 2.1 mg/dL (1.6-3.0); POTASSIUM 4.4 mmol/L (3.5-5.1)
[2017-01-29 10:35] LABS: ARTERIAL BLD GAS O2 SATURATION 91.9 % (90.0-100.0); ARTERIAL BLOOD GAS ALLEN TEST NORMAL; ARTERIAL BLOOD GAS ART SITE LEFT RADIAL; ARTERIAL BLOOD GAS CARBOXY HB 1.4 %sat (0.0-9.0); ARTERIAL BLOOD GAS DELIVERY NASAL CANNULA; ARTERIAL BLOOD GAS HCO3 47.7 mmol/L; ARTERIAL BLOOD GAS LITER FLOW 2.5; ARTERIAL BLOOD GAS MET HB 0.8 %sat (0.0-2.0); ARTERIAL BLOOD GAS PCO2 61.9 mmHg (35.0-45.0); ARTERIAL BLOOD GAS PO2 68.3 mmHg (80.0-100); ARTERIAL BLOOD GAS pH 7.495 (7.350-7.450); ARTERIAL DRAW? YES
[2017-01-29 21:55] LABS: URBCS1 AUWI INNUM /[HPF] (0-2); URINE APPEARANCE CLEAR; URINE BACTERIA AUWI NEG (NEGATIVE); URINE BILIRUBIN NEG (NEG); URINE BLOOD 3+ (NEG); URINE COLOR YELLOW; URINE GLUCOSE NEG (NEG); URINE KETONE NEG (NEG); URINE LEUKOCYTE ESTERASE TRACE (NEG); URINE NITRATE NEG (NEG); URINE PROTEIN 1+ (NEG); URINE SPECIFIC GRAVITY 1.013 (1.003-1.035); URINE SQUAMOUS EPITHELIAL CELL NONE SEEN /[HPF]
[2017-01-30 05:06] LABS: BUN/CREATININE RATIO 30.55; CALCIUM SERUM 9.1 mg/dL (8.4-10.2); CREATININE SERUM 1.8 mg/dL (0.6-1.4); GLOM FILT RATE Estimated 43.8 mL/min (>60); MAGNESIUM 2.4 mg/dL (1.6-3.0); POTASSIUM 5.4 mmol/L (3.5-5.1)
[2017-01-30 08:43] LABS: ARTERIAL BLD GAS O2 SATURATION 92.3 % (90.0-100.0); ARTERIAL BLOOD GAS CARBOXY HB 1.3 %sat (0.0-9.0); ARTERIAL BLOOD GAS HCO3 44.8 mmol/L; ARTERIAL BLOOD GAS MET HB 0.8 %sat (0.0-2.0); ARTERIAL BLOOD GAS pH 7.463 (7.350-7.450)
[2017-01-30 08:44] LABS: ARTERIAL BLOOD GAS ART SITE RIGHT RADIAL; ARTERIAL BLOOD GAS DELIVERY NASAL CANNULA; ARTERIAL BLOOD GAS PCO2 62.6 mmHg (35.0-45.0); ARTERIAL BLOOD GAS PO2 73.4 mmHg (80.0-100); ARTERIAL DRAW? YES
[2017-01-31 05:04] LABS: BASOPHIL% 0.1 % (0-2.5); HEMATOCRIT 31.8 % (38.0-50.0); LYMPHOCYTE# 0.8 X10e3 (1.0-3.5); LYMPHOCYTE% 5.5 % (17.0-45.0); MEAN CELL VOLUME 88.9 FL (83-96); MEAN CORPUSCULAR HGB CONC 31.5 g/dL (30-36); MEAN PLATELET VOLUME 7.9 FL (6.5-11.5); MONOCYTE# 0.9 X10e3 (0-1.0); MONOCYTE% 6.8 % (3.0-12.0); NEUTROPHIL# 11.9 X10e3 (1.5-7.1); NEUTROPHIL% 87.6 % (40-75); PLATELET COUNT 317 X10e3 (140-420); RED BLOOD COUNT 3.58 X10e (3.90-5.60); WHITE BLOOD COUNT 13.6 X10e3 (4.0-10.5)
[2017-01-31 05:07] LABS: DIFF IND NO
[2017-01-31 05:32] LABS: BUN/CREATININE RATIO 39.33; CALCIUM SERUM 9.1 mg/dL (8.4-10.2); CREATININE SERUM 1.5 mg/dL (0.6-1.4); GLOM FILT RATE Estimated 54.7 mL/min (>60); MAGNESIUM 2.4 mg/dL (1.6-3.0); POTASSIUM 4.5 mmol/L (3.5-5.1)
[2017-02-01 06:04] LABS: HEMATOCRIT 32.8 % (38.0-50.0); HEMOGLOBIN 9.9 gm/dL (13.0-16.0); LYMPHOCYTE# 1.5 X10e3 (1.0-3.5); LYMPHOCYTE% 9.3 % (17.0-45.0); MEAN CELL VOLUME 88.2 FL (83-96); MEAN CORPUSCULAR HEMOGLOBIN 26.6 PG (28-34); MEAN CORPUSCULAR HGB CONC 30.2 g/dL (30-36); MEAN PLATELET VOLUME 7.5 FL (6.5-11.5); MONOCYTE# 1.3 X10e3 (0-1.0); NEUTROPHIL# 13.6 X10e3 (1.5-7.1); NEUTROPHIL% 82.7 % (40-75); PLATELET COUNT 347 X10e3 (140-420); RED BLOOD COUNT 3.72 X10e (3.90-5.60); RED CELL DISTRIBUTION WIDTH 20.9 % (11.0-15.5); WHITE BLOOD COUNT 16.5 X10e3 (4.0-10.5)
[2017-02-01 06:06] LABS: DIFF IND YES
[2017-02-01 06:28] LABS: ANISOCYTOSIS MOD; PLATELET ESTIMATE NORMAL (NORMAL)
[2017-02-01 06:29] LABS: HYPOCHROMIA SL; TARGET CELLS SL
[2017-02-01 07:14] LABS: BUN/CREATININE RATIO 47.5; CALCIUM SERUM 9.4 mg/dL (8.4-10.2); CREATININE SERUM 1.2 mg/dL (0.6-1.4); GLOM FILT RATE Estimated 71.6 mL/min (>60); MAGNESIUM 2.3 mg/dL (1.6-3.0); POTASSIUM 4.2 mmol/L (3.5-5.1)
[2017-02-01] MEDS ORDERED: OLANZAPINE5 MG PO (11:12)
[2017-02-01] MEDS ORDERED: GLUCOPHAGE500 MG PO (11:17)
[2017-02-01] MEDS ORDERED: COMBIVENT U/D3 M2 INH (11:21)
[2017-02-01] MEDS ORDERED: DELTASONE20 MG PO (11:22)
[2017-02-01] MEDS ORDERED: BUMEX1 MG PO (11:23)
[2017-02-01] MEDS ORDERED: PAIN RELIEF325 M1 PO (11:23)
[2017-02-01] MEDS ORDERED: MAGOX 400400 MG PO (11:23)
[2017-02-01] MEDS ORDERED: NEURONTIN100 MG PO (12:12)
[2017-02-01] MEDS ORDERED: ENTRESTO 24 MG1 EACH PO (17:43)
== END 2017-02-01 19:40 | disposition home health service (06) | DRG 291 ==
LOC: CED 14:14 → C3A PCU 17:05 → CEDOF 17:05 → CED 17:05 → CEDOF 17:29 → C3A PCU 17:29 → CED 17:29 → CEDOF 18:19 → C3A PCU 18:19 → CEDOF 01-26 05:05 → CICCU3 01-29 18:30 → C3A PCU 01-31 11:50
PROVIDERS: Emergency Medicine; Family Medicine; Internal Medicine; Internal Medicine Cardiovascular Disease; Nurse Practitioner; Nurse Practitioner Family
PROC: 05H533Z Insertion of Infusion Device into Right Subclavian Vein, Percutaneous Approach (ICD-10-PCS; principal; 2017-01-26)
PROC: B516YZA Fluoroscopy of Right Subclavian Vein using Other Contrast, Guidance (ICD-10-PCS; 2017-01-26)
PROC: B546ZZA Ultrasonography of Right Subclavian Vein, Guidance (ICD-10-PCS; 2017-01-26)
PROC: B24BYZZ Ultrasonography of Heart with Aorta using Other Contrast (ICD-10-PCS; 2017-01-26)
DX: I11.0 Hypertensive heart disease with heart failure (principal); J18.9 Pneumonia, unspecified organism; I47.2 Ventricular tachycardia; J96.12 Chronic respiratory failure with hypercapnia; J96.11 Chronic respiratory failure with hypoxia; J90 Pleural effusion, not elsewhere classified; I50.43 Acute on chronic combined systolic (congestive) and diastolic (congestive) heart failure; R55 Syncope and collapse; J44.9 Chronic obstructive pulmonary disease, unspecified; Z99.81 Dependence on supplemental oxygen; I42.9 Cardiomyopathy, unspecified; I48.0 Paroxysmal atrial fibrillation; I73.9 Peripheral vascular disease, unspecified; E78.5 Hyperlipidemia, unspecified; Z95.810 Presence of automatic (implantable) cardiac defibrillator; Z79.4 Long term (current) use of insulin; I25.10 Atherosclerotic heart disease of native coronary artery without angina pectoris; Z95.5 Presence of coronary angioplasty implant and graft; Z79.82 Long term (current) use of aspirin; Z66 Do not resuscitate; M62.3 Immobility syndrome (paraplegic)
CPT/HCPCS: 36415; 36600; 71010; 71250; 76937; 77001; 80048; 80076; 81003; 82533; 82550; 82553; 82803; 82947; 83605; 83735; 83880; 84484; 85025; 85027; 87040; 87086; 92526; 92610; 93005; 93306; 94640; 94660; 94760; 94761; 96361; 96365; 96367; 97110; 97116; 97163; 97166; 97530; 97535; 99285; C1751; G8978-GP; G8979-GP; G8987-GO; G8988-GO; G8996-GN; G8997-GN; G8998-GN; J1250; J1265; J1815; J1956; J2543; J2920; J3370; J3475

== ENCOUNTER 2017-02-11 23:43 | Inpatient (IN) | payer MEDICARE, OTHER ==
[~2017-02-11] VITALS: Ht 167.6 cm; Wt 71.2 kg
--- NOTE | ~2017-02-11 | CO ---
Unit #: [id number] #: [id number] Patient: LOTTIE CARDENAS [id number] [place], [place] [address] [id number] I MR#: [id number] NAME: LOTTIE CARDENAS ROOM: CICCU3 Age: 66 Sex: M Admission Date: 02/12/2017 : 1950 Attending Physician: Mark Durham M.D. Primary Care Physician: Aldair Cantu M.D. CONSULTATION REPORT CHIEF COMPLAINT Shortness of air. HISTORY OF PRESENT ILLNESS Mr. Cardenas was recently here from January 23 through February 01. On January 23, he was admitted with syncope. At that time, we saw him. Patient has a history of nonischemic cardiomyopathy. He underwent 2D echocardiogram 01/25/2017 which showed an EF of 10-15%, grade 2 diastolic dysfunction, severe tricuspid regurgitation and mild mitral regurgitation. He also has a [email or web address] AICD with chronic systolic congestive heart failure, COPD on home O2 and he has a history of noncompliance. He follows with Dr. Arana at [facility]. He presents this admission with congestive heart failure, fluid volume overload. At present time, he is receiving IV diuresis and a dobutamine drip is pending. Patient is a poor historian, very difficult to get information from. He states he was discharged home and that he lives alone. He has requested to be a DNR and he was a DNR on his last admission. PAST MEDICAL HISTORY 1. Chronic systolic congestive heart failure, EF 10-15%. 2. AICD. 3. Paroxysmal atrial fibrillation. 4. History of arteriosclerotic heart disease with stent placement to the LAD. 5. Peripheral vascular disease. 6. Hypertension. 7. Dyslipidemia. 8. Type 2 diabetes. 9. History of TIA. 10. End stage COPD, on home O2. 11. DNR. 12. Longstanding history of noncompliance. 13. Anemia. 14. Dyslipidemia. PAST SURGICAL HISTORY 1. Coronary catheterization with stenting to the LAD. 2. [email or web address] AICD. HOME MEDICATIONS Patient was discharged on the on the followin. Prednisone 20 mg daily for five days. 2. Eliquis 5 mg twice daily. 3. Folic acid 1 mg daily. Unit #: [id number] #: [id number] Patient: LOTTIE CARDENAS 4. Duo-Nebs every six hours. 5. Flonase two squirts each nostril every morning. 6. Zyprexa 5 mg at bedtime. 7. Reglan 5 mg a.c. 8. Aspirin 81 mg daily. 9. Mag ox 400 mg daily. 10. Neurontin 100 mg at h.s. 11. Bumex 1 mg daily. 12. Lantus 20 units every morning and 40 units every evening. 13. Metformin 500 mg t.i.d. 14. Symbicort 160/4.5, two puffs twice daily. 15. Tylenol p.r.n. ALLERGIES Oxycodone and Tylenol. SOCIAL HISTORY Lives alone. Prior history of tobacco, occasional alcohol use. No illicit drug use. FAMILY HISTORY Positive for arteriosclerotic heart disease in his father. REVIEW OF SYSTEMS Very difficult to obtain as patient just simply cannot answer most of the questions asked. PHYSICAL EXAMINATION Chronically debilitated, elderly, -Ugand[place] male who has tachypnea and accessory muscle use, in CCU on O2. VITAL SIGNS - temp 97.5, pulse 110, respirations 28, O2 at 4 L with O2 sat 99%. Blood pressure 126/80, 5 feet 6 inches, weight is 73 kilograms, BMI is 25. Normocephalic, atraumatic. No xanthelasma. Pupils equal, round, reactive to light. Gross jugular venous distention, gross elevation of CVP. LUNGS - tachypneic with crackles in the bases. Also, lungs are decreased middle and lower lobes. S1, S2. 2/6 systolic murmur. ABDOMEN is distended. Jenkins cath to bedside drainage with straw urine output. 1 to 2+ bilaterally lower extremity pitting edema. Patient is awake, alert, oriented to person, place and time. DIAGNOSTIC AND LABORATORY STUDIES On January 28, he had a right pleural effusion. ABGs - pH 7.31, pCO2 87, pO2 204. Chemistry - sodium 139, potassium 4.5, chloride 93, CO2 39, BUN 27, creatinine 0.8, glucose 369. Magnesium on the 01 of February was 2.3. AST 16, ALT 24, alk. phos. 160. Brain natriuretic peptide 1164. Lactic acid 1.1. PT 11.3, INR 1.0, PTT 25.1. Point of care troponin less than 0.05 and less than 0.05. CK MB 2.3 and 2.3. Hemoglobin 10.7, hematocrit 35.9, white blood cell count 11.3, platelet count 266. ASSESSMENT/PLAN 1. Acute on chronic systolic congestive heart failure with fluid volume overload. Patient has received IV Bumex 1 mg as well as IV Lasix. Dobutamine drip is pending. 2. Acute on chronic COPD with hypercarbia. Unit #: [id number] #: [id number] Patient: LOTTIE CARDENAS 3. DNR. 4. Nonischemic cardiomyopathy. 5. AICD. We will follow along. Thank you for allowing us to participate in the care of this patient. Dictated by... Navarro Srivastava/michael TD: 02/13/2017 11:02 JOB #: [id number] CONSULTATION REPORT Page 1 of 1 X X CONSULTATION REPORT
--- NOTE | ~2017-02-11 | XA166 ---
[facility] A Service of [facility] & [facility] RADIOLOGY TEXT RESULTS PATIENT: LOTTIE CARDENAS LOCATION: C3A 313-01 : 48 UNIT #: [id number] AGE: [address]: Mark Durham MD SEX: M ORDER DR: [id number] [facility] [address] [place], [place] [address] [id number] I MR#: [id number] Acc #: [id number] NAME: LOTTIE CARDENAS : 1950 SEX: M STUDY DATE/TIME: 02/12/2017 10:52 [facility] STUDY DESCRIPTION: XA PICC Line Placement WO Port Attending Physician: Mark Durham M.D. Ordering Physician: Esteban Duran M.D. Primary Care Physician: Aldair Cantu M.D. MEDICAL IMAGING REPORT This report is preliminary unless electronic signature is present EXAM Right arm PICC line insertion. CLINICAL HISTORY IV access needed for multiple IV medications. PROCEDURE Informed consent was obtained. A skin site was selected with ultrasound guidance and marked and real-time sterile ultrasound guidance was used both to guide venous access and confirm vessel patency. After sterile preparation and draping and local anesthesia, a micropuncture set was used to access a right arm vein. Attempts at passing guidewire centrally were unsuccessful. A peel-away sheath was inserted and a venogram was performed. 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 Because of the presence of a pacemaker device in the contralateral subclavian vein and the lack of any current caustic intravenous medication, the decision was made to place a PICC line such that its distal tip terminating in the medial subclavian vein. Catheter was measured and cut to length and affixed to the skin with its distal tip in the mid subclavian vein which was confirmed fluoroscopically. There are no complications and the patient tolerated the procedure well. A total of 0.7 minutes of fluoroscopy was utilized, with a total of 2 angiographic series. An ultrasound image was preserved, as well. IMPRESSION Successful ultrasound and fluoroscopically guided insertion of a right arm catheter. Because of a central venous occlusion, it was not possible to place the catheter tip from the right arm into the SVC. Catheter was cut to length and affixed to the skin with its tip in the mid subclavian, where it is ready for immediate use. [facility] A Service of [facility] & [facility] RADIOLOGY TEXT RESULTS PATIENT: LOTTIE CARDENAS LOCATION: C3A 313-01 : 48 UNIT #: [id number] AGE: [address]: Mark Durham MD SEX: M ORDER DR: Dictated by... Angel Farley M.D. THIS IS AN ELECTRONICALLY VERIFIED REPORT Angel Farley M.D. at 02/16/2017 4:09 PM PRAMOD/prema TD: 02/13/2017 01:44 JOB #: [id number] MEDICAL IMAGING REPORT Page 1 of 1 COPY
--- NOTE | ~2017-02-11 | DS ---
Unit #: [id number] #: [id number] Patient: LOTTIE CARDENAS [id number] [address] [address] [id number] I MR#: [id number] NAME: LOTTIE CARDENAS ROOM: 313 Age: 66 Sex: M Admission Date: 02/12/2017 : 1950 Discharge Date: 02/15/2017 Attending Physician: Mark Durham M.D. Primary Care Physician: Aldair Cantu M.D. DISCHARGE SUMMARY REASON FOR ADMISSION Dyspnea, multifactorial. HISTORY OF PRESENT ILLNESS/HOSPITAL COURSE Patient is a 66-year-old -Mac[place] male who is a fairly poor historian who presented secondary to increased work of breathing, dyspnea while at home. He has a longstanding history of noncompliance with his routine medications. He has a prior history of systolic heart failure with an ejection fraction approximately 10-15%. He also has a prior history of end stage COPD on home O2 to which he does not comply with. He presented secondary to profound dyspnea. He was found to be acutely hypoxic/hypercapnic as well as appeared to be volume overloaded. Subsequently, this prompted BiPAP placement as well as ICU placement. Consultation was placed to pulmonary services. Dr. Duran and associates saw and evaluated patient. He was treated appropriately in ICU, subsequently transitioned to telemetry floor. We also placed consultation to Dr. Campos of [facility] secondary to known history of systolic heart failure. He was treated for acute on chronic systolic heart failure with IV diuresis. He did diurese well while here. At this point in time, patient is now stable for transition home. Overall, this patient's prognosis is poor. He has a longstanding history of noncompliance both with medications, home O2 as well as with fluid restriction secondary to recurrent hospital admissions and with minimal insight into his disease process his chance of readmission is quite high. His overall life expectancy is less than 6 months. This has been reviewed with him in detail and on previous admissions I have reviewed it with patient's family as well. FINAL DISCHARGE DIAGNOSES 1. Dyspnea, multifactorial in origin. 2. Acute hypoxic/hypercapnic respiratory failure, on chronic respiratory failure. 3. End stage chronic obstructive pulmonary disease, on home O2. 4. Acute on chronic systolic heart failure with estimated ejection fraction approximately 10%. 5. Longstanding history of noncompliance. 6. Nonischemic cardiomyopathy with status post automatic implantable cardioverter defibrillator placement. 7. Grade 2 diastolic dysfunction. 8. Severe tricuspid regurgitation. 9. Paroxysmal atrial fibrillation. Unit #: [id number] #: [id number] Patient: LOTTIE CARDENAS 10. Non-anticoagulation candidate secondary to frequent falls as well as noncompliance. 11. Coronary artery disease with prior stent placement to left anterior descending. 12. Peripheral vascular disease. 13. Hypertension. 14. Hyperlipidemia. 15. Type 2 diabetes. 16. Prior history of transient ischemic attack. 17. Anemia, baseline hemoglobin between 9 and 10. FINAL DISCHARGE MEDICATIONS 1. Prednisone 40 mg p.o. daily x5 days. 2. DuoNeb aerosol solution q.6 scheduled. 3. Symbicort 160/4.5, 2 puffs b.i.d. 4. Tylenol 650 mg p.o. q.6 p.r.n. 5. Entresto 24/, 1 tablet p.o. b.i.d. 6. Mag ox 400 mg p.o. daily. 7. Flonase 1 squirt each nostril daily. 8. Hydrocortisone topical as directed. 9. Eliquis 5 mg p.o. b.i.d. 10. Neurontin 100 mg p.o. q. h.s. 11. Glucophage 500 mg p.o. b.i.d. 12. Coreg 3.125 mg p.o. b.i.d. 13. Bumex 1 mg p.o. daily. 14. Lantus 20 units subcu q. a.m. 15. Lantus 40 units subcu q. h.s. 16. NovoLog sliding scale insulin with each meal. 17. Reglan 5 mg p.o. q. a.c. and q. h.s. 18. Aspirin 81 mg daily. 19. Zyprexa 5 mg p.o. q. h.s. 20. [place] as directed. 21. Folic acid 1 mg p.o. daily. DISCHARGE CONDITION Stable. DISCHARGE DISPOSITION Home. Prognosis of this patient is very poor. Dictated by... Nohemi Goode/michael TD: 02/17/2017 16:01 JOB #: [id number] Unit #: [id number] #: [id number] Patient: LOTTIE CARDENAS DISCHARGE SUMMARY Page 1 of 1 X Mark Durham MD X DISCHARGE SUMMARY
--- NOTE | ~2017-02-11 | HP ---
Unit #: [id number] #: [id number] Patient: LOTTIE CARDENAS [id number] [address] [address] [id number] I MR#: [id number] NAME: LOTTIE CARDENAS ROOM: [facility]ICCU[facility] Age: 66 Sex: M Admission Date: 02/11/2017 : 1950 Attending Physician: Mark Durham M.D. Primary Care Physician: Aldair Cantu M.D. HISTORY AND PHYSICAL DATE OF EVALUATION February 12, 2017. REASON FOR ADMISSION Dyspnea, multifactorial. HISTORY OF PRESENT ILLNESS Patient is a fairly poor historian himself. He stated that over the past several days he has been developing increased shortness of breath, worse for the past 24 to 48 hours. He also complained of increased onset of dizziness as well. He subsequently presented to the hospital/ER for further evaluation. Initially, it was noted patient was using accessory muscles with retractions and decreased air movement. He received appropriate treatment in the ER including Solu-Medrol, aerosols, as well as, O2 via nasal cannula. Subsequently, decision was made for admission. Initial ABG did show a pCO2 of 88, pH 7.31, pO2 after receiving O2 was at 104. At the present time, currently patient is sitting in the ICU. He is able to communicate and speak full sentences but again he, himself, is not the best historian. PAST MEDICAL HISTORY 1. Recent hospital admission and discharge on February 01, 2017, secondary to syncopal episode. 2. End-stage COPD on home O2. 3. Longstanding history of noncompliance. 4. Nonischemic cardiomyopathy, status post AICD placement. 5. Prior history of chronic systolic heart failure. 6. Ejection fraction 10% to 15%. 7. Grade 2 diastolic dysfunction. 8. Severe tricuspid regurgitation. 9. Paroxysmal atrial fibrillation history, nonanticoagulation candidate secondary to noncompliance. 10. Coronary artery disease history, stent placement to LAD. 11. Peripheral vascular disease. 12. Hypertension. 13. Hyperlipidemia. 14. Type 2 diabetes. 15. Prior history of TIA. 16. Anemia, baseline hemoglobin between 9-10. PAST SURGICAL HISTORY Unit #: [id number] #: [id number] Patient: LOTTIE CARDENAS Prior history of defibrillator/AICD placement. HOME MEDICATIONS 1. DuoNeb aerosol solution. 2. Flonase. 3. Eliquis. 4. Folic acid. 5. Lantus. 6. Aspirin. 7. Athlete foot spray. 8. [place] Nasal [place]. 9. Reglan. 10. NovoLog. 11. Symbicort. 12. Zyprexa. 13. Glucophage. 14. Combivent. 15. Mag-Ox. 16. Bumex. 17. Neurontin. 18. Entresto. Please note, I am not really sure if patient is taking any of his medications as prescribed as he has a longstanding history of noncompliance. FAMILY HISTORY Reviewed, noncontributory and nonpertinent given advanced age and associated co-morbid conditions. SOCIAL HISTORY Patient resides at home by himself. He has a prior history of tobacco use. He socially drinks alcohol. He denies illicit drug use. REVIEW OF SYSTEMS Please see HPI. A 12-point otherwise negative except for those positive and noted in the HPI. PHYSICAL EXAMINATION VITAL SIGNS: Temperature 98.2, pulse 117, respiratory rate 23, blood pressure 122/89. GENERAL APPEARANCE: Patient is an ill-appearing 66-year-old -Micronesian male in no acute distress. HEENT: Head: Atraumatic, normocephalic. Ears: Tympanic membranes did not reveal erythema or injection. NECK: Accessory muscle use noted. Supple. No JVD. CARDIOVASCULAR: S1, S2 audible. A 2/6 systolic ejection murmur heard. RESPIRATORY: Coarse breath sounds are noted bilaterally. GASTROINTESTINAL/ABDOMEN: Nontender, nondistended. EXTREMITIES: Lower extremities have no evidence of any lower extremity edema. No calf tenderness. IMPRESSION 1. Dyspnea, multifactorial in origin. 2. Acute on chronic hypoxic/hypercapnic respiratory failure. 3. End-stage chronic obstructive pulmonary disease. 4. Acute on chronic systolic heart failure with estimated ejection fraction 10% to 15%. Unit #: [id number] #: [id number] Patient: LOTTIE CARDENAS 5. Hypertension. 6. Diabetes. 7. Hyperlipidemia. 8. Paroxysmal atrial fibrillation. 9. Peripheral arterial disease. 10. Coronary artery disease. 11. Longstanding history of noncompliance. PLAN 1. Admission. 2. Pulmonary consultation. 3. Cardiology consultation. 4. ICU placement. 5. Strict ins and outs. 6. DuoNeb aerosol solution. 7. IV Solu-Medrol. 8. Bumex. 9. Pressor support as needed. 10. Through previous chart review and discussion with patient's family in past, the patient is noted to be DNR. This will be continued while here. 11. Overall, patient's prognosis is poor secondary to longstanding history of noncompliance. I have reviewed his level of care with his fiancee as well as his niece. His change of readmission significantly elevated and his overall prognosis is poor to the state/point where hospice should be considered. Family will discuss with patient as his overall heart function is minimal and/or poor. 12. Plans will be reviewed. Patient will be followed closely while here in the hospital. Family will be updated. DNR status will be reaffirmed. Dictated by Mark Durham M.D. PIYUSH/shahzad TD: 02/12/2017 11:15 JOB #: [id number] HISTORY AND PHYSICAL Page 1 of 1 X Mark Durham MD X HISTORY AND PHYSICAL
--- NOTE | ~2017-02-11 | CO ---
Unit #: [id number] #: [id number] Patient: LOTTIE CARDENAS [id number] [address] [address] [id number] I MR#: [id number] NAME: LOTTIE CARDENAS ROOM: CICCU3 Age: 66 Sex: M Admission Date: 02/12/2017 : 1950 Attending Physician: Mark Durham M.D. Primary Care Physician: Aldair Cantu M.D. CONSULTATION REPORT HISTORY Mr. Cardenas is a 66-year-old male who presented to the emergency room because of increasing shortness of breath. He had been hospitalized 01/26 through 02/01/2017 for "a syncopal episode at home and dyspnea." He has a history of chronic respiratory failure, severe COPD, nonischemic chronic systolic congestive heart failure with ejection fraction of 10% to 15%, paroxysmal atrial fibrillation - maintained on Eliquis, peripheral arterial disease, hyperlipidemia, diabetes, hypertension. He denied any fever, chills, sweats or purulent sputum. He says his nebulizer machine broke. He had been using it every 4 hours. When it broke, he got more short of breath and came to the emergency room. He denied any chest pain. He has had some increased swelling. In the emergency room he was noted to be breathing 23 times a minute. His pulse was 117. He was afebrile. His O2 sat was 100% on 4 liters. Blood pressure is 122/89. He was noted to have accessory muscle use, retractions and decreased air movement, able to speak only in 4- to 5-word sentences. He did have pedal edema. He refused BiPAP. His chest x-ray showed pacemaker wires, no acute infiltrate, mass or congestion. Arterial blood gases revealed a pH of 7.31, pCO2 of 87, pO2 of 204 on 4 liters. Chemistries - Creatinine was 0.8, glucose was 369, BUN 27, CO2 was 39. Cardiac enzymes were negative. BNP was 1,164. Lactic acid was 1.1. White count was 11,300, hematocrit 35.9, platelet count was normal. PAST MEDICAL HISTORY 1. Chronic congestive heart failure, nonischemic, ejection fraction 10% to 15%, grade 2 diastolic dysfunction, AICD. 2. Paroxysmal atrial fibrillation. 3. History of nonsustained ventricular tachycardia. 4. Coronary artery disease with stent placement LAD. 5. Peripheral vascular disease. 6. Hypertension. 7. Hyperlipidemia. 8. Type 2 diabetes mellitus. 9. History of TIA. 10. Endstage COPD. 11. Chronic respiratory failure, on home O2. 12. DNR status. 13. History of noncompliance. 14. Mild anemia. HOME MEDICATIONS Home medications included Combivent, Flonase, Eliquis, folic acid, Lantus, aspirin, athletes foot spray, clotrimazole, [place] Nasal [place], Desitin Unit #: [id number] #: [id number] Patient: CARDENAS,BRIGHT ointment, Tridesilon cream, Hydrocream, Lantus SoloSTAR, Reglan, NovoLog, Symbicort, Zyprexa, Glucophage, prednisone, Tylenol, Mag-Ox 400, Bumex 1 mg daily, Neurontin, Entresto b.i.d. ALLERGIES No allergies listed. FAMILY HISTORY No history of familial lung disease. SOCIAL HISTORY Single. Lives at home. Patient drinks alcohol. Reformed smoker x1 year, he says. REVIEW OF SYSTEMS Basically negative to all. Does not want to answer questions. GENERAL: He has had no fever or chills. HEENT: No rhinorrhea, nasal congestion. PULMONARY: As noted. CARDIAC: No chest pain. GI: No nausea, vomiting. Some increased abdominal girth. : No hematuria or dysuria. ENDOCRINE: Does have diabetes. No thyroid disease. NEUROLOGIC: Has history of syncope and TIA. Denies recent seizure. HEMATOLOGIC: Does have some easy bruising, bleeding. SKIN: No rash. PHYSICAL EXAM VITAL SIGNS: Blood pressure is 150/65, pulse 116, respiratory rate 21, afebrile. HEENT: Normocephalic, atraumatic. Pupils equal, round and reactive. Sclerae nonicteric. Nasal passages patent. Posterior pharynx is crowded. Mallampati IV. Poor dentition. NECK: Supple. Trachea midline. No cervical, supraclavicular lymphadenopathy. RESPIRATORY: Lungs reveal diminished breath sounds, prolonged expiratory phase, crackles in the bases. CARDIAC: Regular rate and rhythm. Could not appreciate murmur, rub or gallop. ABDOMEN: Nontender. Bowel sounds present. No hepatosplenomegaly. EXTREMITIES: Without clubbing, cyanosis. There is brawny edema. Diminished peripheral pulses. Some bruising and some discoloration to the right thigh along well-healed suture line. PSYCHIATRIC: Affect somewhat slow. NEUROLOGIC: Awake. Does respond with mainly yes or no questions. Able to speak in short sentences. Does move all extremities symmetrically. DIAGNOSTIC STUDIES LABORATORY STUDIES: As noted. Personally reviewed. IMPRESSION 1. Acute and chronic hypoxemic, hypercarbic respiratory failure. 2. COPD. 3. Acute and chronic systolic congestive heart failure, ejection fraction 10% to 15%. 4. Hypertension. 5. Diabetes. 6. Hyperlipidemia. Unit #: [id number] #: [id number] Patient: LOTTIE CARDENAS 7. Paroxysmal atrial fibrillation. 8. Peripheral arterial disease. 9. Coronary artery disease. PLAN Will treat with inhaled bronchodilators, inhaled corticosteroids, burst steroids. Diuresis. Inotropes. BiPAP. Continue most home medications. Have discussed code status with the patient. He wishes DNR status. Dictated by... Esteban Duran M.D. KRISTA/clevel[place] TD: 02/13/2017 10:20 JOB #: [id number] CONSULTATION REPORT Page 1 of 1 X Esteban Duran MD X CONSULTATION REPORT
--- NOTE | ~2017-02-11 | EKG ---
PATIENT: LOTTIE CARDENAS UNIT #: [id number] Ventricular Rate: 107 BPM Atrial Rate: 107 BPM P-R Interval: 152 ms QRS Duration: 94 ms Q-T Interval: 338 ms QTC Calculation(Bezet): 451 ms P Henderson: 59 degrees Calculated R Henderson: -48 degrees Calculated T Henderson: 113 degrees Diagnosis Line: Sinus tachycardia Diagnosis Line: Possible Left atrial enlargement Diagnosis Line: Left axis deviation Diagnosis Line: Inferior infarct (cited on or before 17-DEC-2013) Diagnosis Line: Anterior infarct , age undetermined Diagnosis Line: Abnormal ECG Diagnosis Line: When compared with ECG of 29-JAN-2017 18:47, Diagnosis Line: Inferolateral injury pattern is no longer Present Diagnosis Line: Serial changes of Inferior infarct Present Diagnosis Line: Confirmed by TIA GRIFFITHS, DARRIUS ([id number]) on 02/12/2017 Diagnosis Line: 7:55:02 PM INTERPRETING MD: TIA GRIFFITHS
--- NOTE | ~2017-02-11 | CR72 ---
[facility] A Service of [facility] & [facility] RADIOLOGY TEXT RESULTS PATIENT: LOTTIE CARDENAS LOCATION: [address]18 : [birth year] UNIT #: [id number] AGE: [address]: Mark Durham MD SEX: M ORDER DR: [id number] [facility] [address] [place], [place] [address] [id number] I MR#: [id number] Acc #: [id number] NAME: LOTTIE CARDENAS : 1950 SEX: M STUDY DATE/TIME: 02/12/2017 0:29 UNIT: [facility] ROOM: [facility] STUDY DESCRIPTION: CR Chest Single View Portable Attending Physician: Mark Durham M.D. Ordering Physician: Valdez Tucker M.D. Primary Care Physician: Aldair Cantu M.D. MEDICAL IMAGING REPORT This report is preliminary unless electronic signature is present EXAM Single view portable chest HISTORY Shortness of air. Cough for 1 day. FINDINGS Mild cardiac enlargement and pulmonary vascularity is normal. No airspace infiltrates or effusions. Left subclavian pacer lead extends into the right ventricle. IMPRESSION No acute findings. Mild cardiac enlargement. Dictated by... Wisam Shepherd M.D. THIS IS AN ELECTRONICALLY VERIFIED REPORT Wisam Shepherd M.D. at 02/12/2017 10:28 PM SUNIL/konstantin TD: 02/12/2017 12:02 JOB #: [id number] MEDICAL IMAGING REPORT Page 1 of 1 COPY
[~2017-02-11 23:43] MED LIST changes: +ASPIRIN81 M2 PO; +ATHLETE'S FOOT130 GM TOP; +CLOTRIMAZOLE15 GM TOP; +COMBIVENT U/D3 M2 INH; +COREG6.25 M1 PO; +DELTASONE20 MG PO; +DESITIN DIAPER113 GM TOP; +ELIQUIS5 MG PO; +ENTRESTO 24 MG1 EACH PO; +FLONASE 0.05% N16 GM; +FLOVENT DISKUS50 MCG INH; +FOLIC ACID1 MG PO; +GABAPENTIN300 MG PO; +GLUCOPHAGE500 MG PO; +HYDROCREAM28.4 GM TOP; +HYDROXYZINE HCL10 MG PO; +IPRATR-ALBUTEROL3 ML NEB; +LANTUS SOL100 UNIT/1 SUBQ; +LASIX80 MG PO; +LORTAB 10-3251 EACH PO; +MAGOX 400400 MG PO; +METFORMIN PO; +METOCLOPRAMIDE H5 MG PO; +NEURONTIN100 MG PO; +NOVOLOG100 UNITS/ SUBQ; +OCEAN104 ML INH; +OLANZAPINE5 MG PO; +OLANZAPINE7.5 MG PO; +PAIN RELIEF325 M1 PO; +PATIENT'S PHARMACY; +SYMBICORT INH; +TORSEMIDE PO; +TRIDESILON 0.0515 G2 EXT
[2017-02-12 00:38] LABS: POC - CKMB 2.3 ng/mL (0.0-7.9); POC - TROPONIN <0.05 ng/mL (<=0.05)
[2017-02-12 00:48] LABS: ARTERIAL BLD GAS O2 SATURATION 96.2 % (90.0-100.0); ARTERIAL BLOOD GAS CARBOXY HB 2.7 %sat (0.0-9.0); ARTERIAL BLOOD GAS HCO3 44.2 mmol/L
[2017-02-12 00:50] LABS: ARTERIAL BLOOD GAS ALLEN TEST NORMAL; ARTERIAL BLOOD GAS ART SITE RIGHT RADIAL; ARTERIAL BLOOD GAS DELIVERY NASAL CANNULA; ARTERIAL BLOOD GAS PCO2 87.9 mmHg (35.0-45.0); ARTERIAL DRAW? YES
[2017-02-12 01:09] LABS: PARTIAL THROMBOPLASTIN TIME 25.1 SECONDS (23.5-31.3); PROTHROMBIN TIME (PATIENT) 11.3 SECONDS (10.0-11.7)
[2017-02-12 01:12] LABS: BILIRUBIN, DIRECT 0.2 mg/dL (0.0-0.2); BILIRUBIN,INDIRECT 0.5 mg/dL (0.0-0.9); BILIRUBIN,TOTAL 0.7 mg/dL (0.2-2.0); BUN/CREATININE RATIO 33.75; CALCIUM SERUM 9.3 mg/dL (8.4-10.2); CREATININE SERUM 0.8 mg/dL (0.6-1.4); GLOM FILT RATE Estimated 106.4 mL/min (>60); POTASSIUM 4.5 mmol/L (3.5-5.1); PROTEIN TOTAL SERUM 7.5 g/dL (6.0-8.3)
[2017-02-12 01:38] LABS: BASOPHIL# 0.1 X10e3 (0-0.3); BASOPHIL% 0.8 % (0-2.5); EOSINOPHIL# 0.3 X10e3 (0-0.7); EOSINOPHIL% 2.7 % (0.0-7.0); HEMATOCRIT 35.9 % (38.0-50.0); HEMOGLOBIN 10.7 gm/dL (13.0-16.0); LYMPHOCYTE# 1.7 X10e3 (1.0-3.5); LYMPHOCYTE% 14.6 % (17.0-45.0); MEAN CELL VOLUME 91.3 FL (83-96); MEAN CORPUSCULAR HEMOGLOBIN 27.2 PG (28-34); MEAN CORPUSCULAR HGB CONC 29.8 g/dL (30-36); MEAN PLATELET VOLUME 8.1 FL (6.5-11.5); MONOCYTE# 0.8 X10e3 (0-1.0); MONOCYTE% 7.1 % (3.0-12.0); NEUTROPHIL# 8.5 X10e3 (1.5-7.1); NEUTROPHIL% 74.8 % (40-75); PLATELET COUNT 266 X10e3 (140-420); RED BLOOD COUNT 3.93 X10e (3.90-5.60); RED CELL DISTRIBUTION WIDTH 22.2 % (11.0-15.5); WHITE BLOOD COUNT 11.3 X10e3 (4.0-10.5)
[2017-02-12 01:39] LABS: DIFF IND YES
[2017-02-12 01:42] LABS: DIFFERENTIAL COMMENT FEW GIA PLT; PLATELET ESTIMATE NORMAL (NORMAL)
[2017-02-12 01:43] LABS: ANISOCYTOSIS MOD; HYPOCHROMIA SL; POIKILOCYTOSIS SL; STOMATOCYTE PRESENT; TARGET CELLS MOD
[2017-02-12 02:55] LABS: POC - CKMB 2.3 ng/mL (0.0-7.9); POC - TROPONIN <0.05 ng/mL (<=0.05)
[2017-02-12 12:50] LABS: CK TOTAL 18 IU/L (36-174)
[2017-02-12 18:06] LABS: CK TOTAL 21 IU/L (36-174)
[2017-02-13 05:27] LABS: HEMATOCRIT 28.6 % (38.0-50.0); MEAN CORPUSCULAR HGB CONC 30.6 g/dL (30-36); MEAN PLATELET VOLUME 7.6 FL (6.5-11.5); RED BLOOD COUNT 3.23 X10e (3.90-5.60); RED CELL DISTRIBUTION WIDTH 21.9 % (11.0-15.5); WHITE BLOOD COUNT 14.2 X10e3 (4.0-10.5)
[2017-02-13 05:28] LABS: HEMOGLOBIN 8.7 gm/dL (13.0-16.0); MEAN CELL VOLUME 88.3 FL (83-96)
[2017-02-13 06:17] LABS: BUN/CREATININE RATIO 33.33; CALCIUM SERUM 9.1 mg/dL (8.4-10.2); CREATININE SERUM 0.9 mg/dL (0.6-1.4); GLOM FILT RATE Estimated 101.4 mL/min (>60); POTASSIUM 4.6 mmol/L (3.5-5.1)
[2017-02-14 11:33] LABS: CALCIUM SERUM 8.9 mg/dL (8.4-10.2); GLOM FILT RATE Estimated 89.2 mL/min (>60); MAGNESIUM 1.8 mg/dL (1.6-3.0); POTASSIUM 4.2 mmol/L (3.5-5.1)
[2017-02-15 05:59] LABS: BUN/CREATININE RATIO 47.5; CALCIUM SERUM 9.2 mg/dL (8.4-10.2); CREATININE SERUM 0.8 mg/dL (0.6-1.4); GLOM FILT RATE Estimated 106.4 mL/min (>60); POTASSIUM 4.2 mmol/L (3.5-5.1)
[2017-02-15] MEDS ORDERED: COREG3.125 MG PO (10:43)
== END 2017-02-15 16:40 | disposition home health service (06) | DRG 291 ==
LOC: CED 23:43 → CICCU3 02-12 02:35 → CEDOF 02-12 02:35 → CED 02-12 03:04 → CEDOF 02-12 03:04 → CICCU3 02-12 05:20 → C3A PCU 02-14 19:59
PROVIDERS: Emergency Medicine; Family Medicine
PROC: 02HV33Z Insertion of Infusion Device into Superior Vena Cava, Percutaneous Approach (ICD-10-PCS; principal; 2017-02-12)
DX: I11.0 Hypertensive heart disease with heart failure (principal); J96.21 Acute and chronic respiratory failure with hypoxia; I47.2 Ventricular tachycardia; I42.8 Other cardiomyopathies; E11.9 Type 2 diabetes mellitus without complications; D64.9 Anemia, unspecified; J96.22 Acute and chronic respiratory failure with hypercapnia; J44.1 Chronic obstructive pulmonary disease with (acute) exacerbation; I50.23 Acute on chronic systolic (congestive) heart failure; I07.1 Rheumatic tricuspid insufficiency; I48.0 Paroxysmal atrial fibrillation; I25.10 Atherosclerotic heart disease of native coronary artery without angina pectoris; I73.9 Peripheral vascular disease, unspecified; E78.5 Hyperlipidemia, unspecified; Z66 Do not resuscitate; I27.2 Other secondary pulmonary hypertension; Z99.81 Dependence on supplemental oxygen; Z91.19 Patient's noncompliance with other medical treatment and regimen; Z95.810 Presence of automatic (implantable) cardiac defibrillator; Z95.5 Presence of coronary angioplasty implant and graft; Z86.73 Personal history of transient ischemic attack (TIA), and cerebral infarction without residual deficits
CPT/HCPCS: 36415; 36600; 71010; 75820; 76937; 77001; 80048; 80076; 82550; 82553; 82803; 82947; 83605; 83735; 83880; 84484; 85025; 85027; 85610; 85730; 87040; 93005; 94640; 94660; 94664; 94760; 94761; 96374; 97162; 97165; 97530; 97535; 99291; C1751; G8978-GP; G8979-GP; G8987-GO; G8988-GO; J1100; J1815; J1940; J1953; J2260; J2920; J2930; Q9967